=== PATIENT | male | born 1960 | race Caucasian/White ===

== ENCOUNTER 2020-11-15 10:47 | Observation (INO) | payer OTHER ==
[2020-11-15] MEDS ORDERED: SODIUM CHLORIDE 0.9% 1,000 ML IV STA (12:29)
[2020-11-15] MEDS ORDERED: LORazepam 2 MG/ML INJ IV STA (12:30)
[2020-11-15] MEDS ORDERED: MECLIZINE 12.5 MG TAB PO STA (12:30)
[2020-11-15] MEDS ORDERED: METOCLOPRAMIDE 5 MG/ML 2 ML VIAL IVP STA (12:31)
--- NOTE | 2020-11-15 12:35 | ED ---
General Adult HPI - General Chief complaint: Recheck/Abnormal Lab/Rx Stated complaint: elevated BP Time Seen by Provider: 11/15/20 12:07 Source: patient Mode of arrival: wheelchair Limitations: no limitations - History of Present Illness Initial comments: Dictation was produced using [employer] dictation software. please excuse any grammatical, word or spelling errors. This patient was cared for during a federal and state declared state of emergenc y secondary to Covid 19 Chief Complaint: 60-year-old male past medical history of hip osteoarthritis presents emergency department for hypertension. History of Present Illness: Giacomo is a 60-year-old male. He denies any significant comorbidities. He presents to the emergency department for dizziness and hypertension. Patient states that he's been feeling significantly dizzy. He states that it improves at rest. States that his symptoms are worse with certain movements. Especially with looking downwards. Patient denies any history of vertigo or Antivert. Denies any history of stroke. He's been checking his blood pressure for the last 4 days and it was found to have hypert ension. 4 days ago patient got his first vaccine for coronavirus. States that his blood pressure was checked after the vaccine and he was told by nurses that his blood pressure was high. Patient has been checking his blood pressures for the last 4 days with no elevations with systolics ranging between 170 and 200. Patient denies any chest pain. No headache. No shortness of breath. Patient s tates his symptoms are worse mostly with position changes. Patient states that his symptoms feel like the room is spinning. Patient has any history of hypertension. He checked his blood pressure fairly regularly over the last 6 months. He is to rest his blood pressure this high. The ROS documented in this emergency department record has been reviewed and confirmed by me. Those systems with pertinent positive or negative responses have been documented in the HPI. All other systems are other negative and/or noncontributory. PHYSICAL EXAM: General Impression: Alert and oriented x3, not in acute distress HEENT: Normocephalic atraumatic, extra-ocular movements intact, pupils equal and reactive to light bilaterally, mucous membranes moist. Cardiovascular: Heart regular rate and rhythm, no murmurs rubs or gallops Chest: Able to complete full sentences, no retractions, no tachypnea, lungs clear to auscultation bilaterally Abdomen: abdomen soft, non-tender, non-distended, no organomegaly Musculoskeletal: Pulses present and equal in all extremities, no peripheral edema, right hip pain with passive range of motion of the right lower extremity Motor: no focal deficits noted Neurological: CN II-XII grossly intact, no focal motor or sensory deficits noted Skin: Intact with no visualized rashes Psych: Normal affect and mood ED course: 60-year-old male presents with hypertension. He does have symptoms of dizziness. Signs upon arrival shows blood pressure 182/106, rest of vital signs within acceptable limits. Physical examination is benign. Patient has vertiginous symptoms triggered by movements. Clinical presentation concerning for benign paroxysmal positional vertigo. He is well-appearing at bedside. He does not have any HPI or physical exam findings concerning for hypertensive emergency. EKG interpretation: Ventricular rate 107, sinus tachycardia,. Interval 154, QRS 110, QTc 477. No MT prolongation, no QTC prolongation, no ST or T-wave changes noted. No EKG for comparison. Overall this EKG is unremarkable Patient is reevaluated at bedside. He does report some slight improvement. Patient ambulated previous significant arthropathy in his bilateral hips that prevent her from walking smoothly. He does seem mildly anxious. He still complains of some dizziness that is worse when he moves. Considering the patient's symptoms are really improving with vertigo medication there is concern of posterior circulation stroke. CT of the brain and CT angiogram of the head and neck was obtained. Shows no acute processes. Patient be admitted for neurology consultation. Taste discussed with Dr. Johnson was willing to accept patients care. Neurology on consult. - Related Data Home Medications Medication Instructions Recorded Confirmed No Known Home Medications 06/07/16 11/15/20 Allergies Allergy/AdvReac Type Severity Reaction Status Date / Time Sulfa (Sulfonamide Allergy Rash/Hives Verified 11/15/20 16:14 Antibiotics) Review of Systems ROS Statement: Those systems with pertinent positive or pertinent negative responses have been documented in the HPI. ROS Other: All systems not noted in ROS Statement are negative. Past Medical History Additional Past Medical History / Comment(s): Arthritis History of Any Multi-Drug Resistant Organisms: None Reported Past Surgical History: Cholecystectomy Past Psychological History: No Psychological Hx Reported Smoking Status: Never smoker Past Alcohol Use History: None Reported Past Drug Use History: None Reported General Exam Limitations: no limitations Course Vital Signs 11/15/20 11/15/2021 10:55 12:21 14:30 Temperature 98.8 F Pulse Rate 100 99 100 Respiratory 18 18 14 Rate Blood Pressure 192/106 188/108 160/108 O2 Sat by Pulse 98 99 98 Oximetry 11/15/20 15:00 Temperature Pulse Rate 100 Respiratory 15 Rate Blood Pressure 182/100 O2 Sat by Pulse 99 Oximetry Medical Decision Making - Lab Data Result diagrams: 11/15/20 14:24 11/15/20 14:24 Lab Results 11/15/20 11/15/20 Range/Units 14:24 14:24 WBC 11.3 H (3.8-10.6) k/uL RBC 5.99 H (4.30-5.90) m/uL Hgb 15.7 (13.0-17.5) gm/dL Hct 48.9 (39.0-53.0) % MCV 81.7 (80.0-100.0) fL MCH 26.3 (25.0-35.0) pg MCHC 32.2 (31.0-37.0) g/dL RDW 15.1 (11.5-15.5) % Plt Count 287 (150-450) k/uL MPV 7.4 Neutrophils % 78 % Lymphocytes % 15 % Monocytes % 5 % Eosinophils % 1 % Basophils % 0 % Neutrophils # 8.8 H (1.3-7.7) k/uL Lymphocytes # 1.7 (1.0-4.8) k/uL Monocytes # 0.6 (0-1.0) k/uL Eosinophils # 0.1 (0-0.7) k/uL Basophils # 0.1 (0-0.2) k/uL Sodium 140 (137-145) mmol/L Potassium 4.5 (3.5-5.1) mmol/L Chloride 106 (98-107) mmol/L Carbon Dioxide 22 (22-30) mmol/L Anion Gap 12 mmol/L BUN 11 (9-20) mg/dL Creatinine 0.81 (0.66-1.25) mg/dL Est GFR (CKD-EPI)AfAm >90 (>60 ml/min/1.73 sqM) Est GFR (CKD-EPI)NonAf >90 (>60 ml/min/1.73 sqM) Glucose 108 H (74-99) mg/dL Calcium 10.2 (8.4-10.2) mg/dL Disposition Clinical Impression: Dizziness Disposition: ADMITTED IP TO THIS HOSP Condition: Fair Referrals: None,Stated [Primary Care Provider] - 1-2 days Decision Time: 17:16
[2020-11-15 15:04] LABS: HCT 48.9 % (39.0-53.0); HGB 15.7 gm/dL (13.0-17.5); MCH 26.3 pg (25.0-35.0); MCHC 32.2 g/dL (31.0-37.0); MCV 81.7 fL (80.0-100.0); RBC 5.99 m/uL (4.30-5.90); WBC 11.3 k/uL (3.8-10.6)
[2020-11-15 15:05] LABS: Basophils # (A) 0.1 k/uL (0-0.2); Basophils % (A) 0 %; Eosinophils # (A) 0.1 k/uL (0-0.7); Eosinophils % (A) 1 %; Lymphocytes # (A) 1.7 k/uL (1.0-4.8); Lymphocytes % (A) 15 %; Mean Platelet Volume 7.4; Monocytes # (A) 0.6 k/uL (0-1.0); Monocytes % (A) 5 %; Neutrophils # (A) 8.8 k/uL (1.3-7.7); Neutrophils % (A) 78 %; Platelet Count 287 k/uL (150-450); RDW 15.1 % (11.5-15.5)
[2020-11-15 15:08] LABS: African American GFR (CKD) >90 (>60 ml/min/1.73 sqM); Anion Gap 12 mmol/L; Blood Urea Nitrogen 11 mg/dL (9-20); Calcium 10.2 mg/dL (8.4-10.2); Carbon Dioxide 22 mmol/L (22-30); Chloride 106 mmol/L (98-107); Glucose 108 mg/dL (74-99); Non-African American GFR(CKD) >90 (>60 ml/min/1.73 sqM); Potassium 4.5 mmol/L (3.5-5.1); Sodium 140 mmol/L (137-145)
--- NOTE | 2020-11-15 15:56 | CT ---
EXAM: CT brain wo con CLINICAL HISTORY: Dizziness. COMPARISON: None TECHNIQUE: Contiguous axial noncontrast images of the brain were obtained. Coronal and sagittal refor mats were generated and reviewed. Automated dose control was used for this exam. FINDINGS: There is no evidence for intracranial hemorrhage, mass effect or midline shift. There is mild parench ymal volume loss. The white matter is grossly preserved. Ventricular size and configuration is within normal limits for degree of parenchymal volume. The paranasal sinuses are clear. The mastoid air cells are clear. No evidence for calvarial fracture. IMPRESSION: No acute intracranial abnormality.
--- NOTE | 2020-11-15 16:18 | CT ---
EXAM: CTA HEAD AND NECK INDICATION: Hypertension and dizziness. Acute neurologic deficit. COMPARISON: None. TECHNIQUE: CTA of the head and neck were performed with multiplanar and MIP reformats generated and r kennediiewed. Stenosis evaluation is based on [place] Symptomatic Carotid Endarterectomy Trial (WILMER CET). 65 mL Isovue-370 intravenous contrast was administered. FINDINGS: There is normal three-vessel branching of the aorta. There is no evidence of high-grade stenosis, dis section or aneurysm seen in the bilateral common carotid, cervical internal carotid and vertebral art eries. There is no evidence of high-grade stenosis, dissection or aneurysm in the intracranial internal wagner tid arteries, anterior, middle and posterior cerebral arteries as well as in the imaged vertebral and basilar arteries. The communicating arteries are unremarkable. IMPRESSION: No significant abnormality of the CTA head/neck.
[2020-11-15] MEDS ORDERED: NALOXONE 0.4 MG/ML 1 ML VIAL IV PRN (16:46)
[2020-11-15] MEDS ORDERED: ASPIRIN 81 MG PO STA (16:49)
[2020-11-15] MEDS ORDERED: SODIUM CHLORIDE 0.9% 1,000 ML IV SCH (17:00)
[2020-11-15 17:46] LABS: INR 0.9 (<1.2); Partial Thromboplastin Time 22.6 sec (22.0-30.0); Prothrombin Time 10.2 sec (9.0-12.0)
[2020-11-15] MEDS ORDERED: hydrALAZINE HCL 25 MG TAB PO STA (19:44)
--- NOTE | 2020-11-15 22:39 | P.HPIM ---
History of Present Illness H&P Date: 11/15/20 The patient is a 60 yo M with a PMH of sterling severe hip OA who presented to the ED with complaints of dizziness. The patient notes that he hadn't seen a physician for nearly a decade. The patient notes that 2 months ago he suffered a mechanical fall after slipping on water in which he fell on his right shoulder and subsequently dislocating it. He was able to pop his shoulder back in the never sought medical attention. Patient notes that ever since then, he has had a certain level of anxiety with regards to his balance. He notes walking with a cane due to his severe arthritis but reports that even with that, at certain times he feels as though he is going to lose his footing. 4 days ago during his appointment to receive his vaccination, he felt as though his tonsils off, at which time they checked his blood pressure at the vaccination site which was noted to be > 200 systolic. The patient subsequent he purchased a blood pressure kit at home and checked his pressure throughout the day and noted it to be significantly elevated (>160s systolic throughout the day). He noted that he can tell when his blood pressure is elevated since he usually develops a pressure-like headache and that his dizziness worsens. He reported the dizziness as a loss of balance and denied spinning sensation or lightheadedness. Also denied loss of consciousness. Denied weakness, numbness, facial asym metry, impaired speech, or tingling. Denied chest pain, shortness breath, palpitations, diaphoresis, nausea, vomiting, or abdominal pain. In the emergency room, a head and neck CTA was unremarkable with EKG showing sinus tachycardia at 106 bpm along with an incomplete right bundle branch block. L aboratory evaluation was reviewed and was remarkable for leukocytosis at 11.3. Review of Systems Pertinent positives and negatives as discussed in HPI, a complete review of systems was performed and all other systems are negative. Past Medical History Additional Past Medical History / Comment(s): Arthritis History of Any Multi-Drug Resistant Organisms: None Reported Past Surgical History: Cholecystectomy Past Psychological History: No Psychological Hx Reported Smoking Status: Never smoker Past Alcohol Use History: None Reported Past Drug Use History: None Reported Medications and Allergies Home Medications Medication Instructions Recorded Confirmed Type No Known Home Medications 06/07/16 11/15/20 History Allergies Allergy/AdvReac Type Severity Reaction Status Date / Time Sulfa (Sulfonamide Allergy Rash/Hives Verified 11/15/20 16:14 Antibiotics) Physical Exam Vitals: Vital Signs Temp Pulse Pulse Resp BP BP Pulse Ox 11/15/20 19:31 98.4 F 102 H 18 189/97 98 11/15/20 18:19 93 18 175/95 97 11/15/20 15:00 100 15 182/100 99 11/15/20 14:30 100 14 160/108 98 11/15/20 12:21 99 18 188/108 99 11/15/20 10:55 98.8 F 100 18 192/106 98 Intake and Output 11/15/20 11/15/20 11/15/20 06:59 14:59 22:59 Other: Weight 81.647 kg 81.647 kg General: non toxic, no distress, appears at stated age, overweight Derm: no unusual rashes/lesions no unusual ecchymoses, warm, dry Head: atraumatic, normocephalic, symmetric Eyes: EOMI, no lid lag, anicteric sclera, pupils equal round reactive to light ENT: Nose and ears atraumatic, no thrush, no pharyngeal erythema Neck: No thyromegaly, no cervical lymphadenopathy, trachea midline, supple Mouth: no lip lesion, mucus membranes moist Cardiovascular: S1S2 reg, no murmur, positive posterior tibial pulse bilateral, no edema, capillary refill less than 2 seconds Lungs: CTA bilateral, no rhonchi, no rales , no accessory muscle use Abdominal: soft, nontender to palpation, no guarding, no appreciable organomegaly, normal bowel sounds Ext: no gross muscle atrophy, muscle strength 4 out of 5 in bilateral lower extremities and 5 out of 5 in bilateral upper extremities, no contractures, Neuro: CN II-XI grossly intact, light touch intact all 4 extremities, finger to nose within normal limits, Psych: Alert, oriented, appropriate affect Results CBC & Chem 7: 11/15/20 14:24 11/15/20 14:24 Labs: Abnormal Lab Results - Last 24 Hours (Table) 11/15/20 11/15/20 Range/Units 14:24 14:24 WBC 11.3 H (3.8-10.6) k/uL RBC 5.99 H (4.30-5.90) m/uL Neutrophils # 8.8 H (1.3-7.7) k/uL Glucose 108 H (74-99) mg/dL Assessment and Plan Plan: Dizziness, possibly due to elevated BP vs posterior circulation lesion -Low suspicion for CVA due to chronicity and negative CTA -Obtain orthostatics -Fall precautions -Control blood pressure -Neuro consult -Neurochecks Uncontrolled HTN -Start Norvasc and Lisinopril Leukocytosis -No signs of active infection at this time -Possibly due to on-going stressor DVT prophylaxis -Heparin subq The patient is admitted with an anticipated less than 2 midnight stay for evaluation of dizziness CODE STATUS: Full Code Discussed with: Patient, Anticipated discharge date: in am Anticipated discharge place: home A total of 35 minutes was spent on the care of this complex patient more than 50% of the time was spent in counseling and care coordination.
[2020-11-15] MEDS ORDERED: amLODIPine 10 MG TAB PO SCH (22:45)
[2020-11-15] MEDS ORDERED: lisinopriL 20 MG TAB PO SCH (22:45)
[2020-11-15] MEDS: HEPARIN SODIUM,PORCINE/PF 5,000 UNIT/0.5 ML SYRINGE SQ SCH (23:05)
[2020-11-16 08:17] VITALS: PULSE 94; RESP 18; TEMP 98.2
[2020-11-16] MEDS: HEPARIN SODIUM,PORCINE/PF 5,000 UNIT/0.5 ML SYRINGE SQ SCH (09:31)
[2020-11-16 09:53] LABS: HCT 42.8 % (39.0-53.0); HGB 14.3 gm/dL (13.0-17.5); MCHC 33.5 g/dL (31.0-37.0); MCV 80.7 fL (80.0-100.0); Mean Platelet Volume 7.3; Platelet Count 248 k/uL (150-450); WBC 7.5 k/uL (3.8-10.6)
[2020-11-16 11:35] VITALS: BP 163/89
--- NOTE | 2020-11-16 12:14 | P.DS ---
Providers Date of admission: 11/15/20 16:46 Expected date of discharge: 11/16/20 Attending physician: Alaina Johnson MD Consults: 11/15/20 16:47 Consult Physician Routine Consulting Provider: Gabriela Charlton Consult Reason/Comments: intractable vertigo Do you want consulting provider notified?: Yes Primary care physician: Stated None Hospital Course: Dizziness Uncontrolled HTN Leukocytosis 60 year old man who does not follow regularly with physicians presented for dizziness, and was found to have elevated BP. He underwent CVA workup with negative CTH and negative CTA. His symptoms improved with control of his blood pressure after starting norvasc and lisinopril. He felt back to normal with no symptoms on following hospital day and was sent home with instructions to establish care with PCP and with prescriptions for new BP meds. Assessment: Gen: awake, alert HEENT: normocephalic, atraumatic, good hearing acuity, moist mucous membranes Resp: good air exchange, breathing comfortably with no accessory muscle use CVS: good distal perfusion x 4, GI: soft, NTTP, ND : no SPT, no CVAT, richter catheter not present MSK: no pitting edema, no clubbing Neuro: non-focal, moving all extremities Psych: cooperative, euthymic mood Patient Condition at Discharge: Good Plan - Discharge Summary Discharge Rx Participant: No New Discharge Prescriptions: New amLODIPine [Norvasc] 10 mg PO Q24H #30 tab lisinopriL [Zestril] 20 mg PO DAILY #30 tab Discharge Medication List amLODIPine [Norvasc] 10 mg PO Q24H #30 tab 11/16/20 [Rx] lisinopriL [Zestril] 20 mg PO DAILY #30 tab 11/16/20 [Rx] Follow up Appointment(s)/Referral(s): None,Stated [Primary Care Provider] - 1-2 days Patient Instructions/Handouts: Heart Healthy Diet (DC), Hypertension (DC) Discharge Disposition: HOME SELF-CARE
[2020-11-16] MEDS ORDERED: ACETAMINOPHEN TAB 500 MG TAB PO PRN (13:04)
[2020-11-16 20:19] LABS: Hemoglobin A1C 5.4 % (4.0-6.0)
== END 2020-11-16 13:29 | disposition home or self-care (01) ==
LOC: EC 10:47 → 1SOBS 16:46
PROVIDERS: ADMIT Internal Medicine; ATTEND Internal Medicine
DX: R42 Dizziness and giddiness (principal); I10 Essential (primary) hypertension; M16.0 Bilateral primary osteoarthritis of hip; R26.89 Other abnormalities of gait and mobility; I45.10 Unspecified right bundle-branch block; R00.0 Tachycardia, unspecified; D72.829 Elevated white blood cell count, unspecified; Z20.822 Contact with and (suspected) exposure to COVID-19; Z88.2 Allergy status to sulfonamides; Z90.49 Acquired absence of other specified parts of digestive tract; Z87.828 Personal history of other (healed) physical injury and trauma; Z91.81 History of falling
CPT/HCPCS: 96372 ×2; 96361; 96374; 96375; 99285; 36415; 93005; 80048; 85025; 85027; 85610; 85730; 83036; 87635; 70496; 70450; 70498; G0378 ×2; J2060; J2765; Q9967; J1644 ×2

== ENCOUNTER 2021-12-18 18:24 | Observation (INO) | payer OTHER ==
[2021-12-18] MEDS ORDERED: SODIUM CHLORIDE 0.9% 500 ML 500 ML IV STA (21:42)
--- NOTE | 2021-12-18 21:52 | ED ---
Dizziness HPI - General Chief Complaint: Dizziness Stated Complaint: Dizziness,numbness in hands Time Seen by Provider: 12/18/21 21:21 Source: patient Mode of arrival: ambulatory Limitations: no limitations - History of Present Illness Initial Comments: 61-year-old male presents to the emergency room with reported dizziness. States that he has had difficulties with ambulation over the past several days. He normally ambulates with a cane however states that he has been unable to stand up straight due to balance issues. states that it is debilitating. He has not gone out of the house or tended any functions because he is afraid to fall. He is also reporting to palpitations. He admits to an episode one year prior for which he came into the emergency department and was diagnosed with hypertension. States he's been taking his medications as directed without any missed doses yet has symptoms. He also reports to palpitations. 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 ROS Other: All systems not noted in ROS Statement are negative. Past Medical History Past Medical History: Hypertension Additional Past Medical History / Comment(s): Arthritis History of Any Multi-Drug Resistant Organisms: None Reported Past Surgical History: Cholecystectomy Past Psychological History: No Psychological Hx Reported Smoking Status: Never smoker Past Alcohol Use History: None Reported Past Drug Use History: None Reported - Past Family History Father Family Medical History: COPD, Deep Vein Thrombosis (DVT), Myocardial Infarction ([place]) Additional Family Medical History / Comment(s): at age 77 Mother Family Medical History: Deep Vein Thrombosis (DVT), Myocardial Infarction ([place]) Additional Family Medical History / Comment(s): leaky heart valve,cabbag Sister(s) Family Medical History: Cancer Additional Family Medical History / Comment(s): bladder cancer General Exam Limitations: no limitations General appearance: alert, in no apparent distress Head exam: Present: atraumatic, normocephalic, normal inspection Eye exam: Present: normal appearance, PERRL, EOMI. Absent: scleral icterus, conjunctival injection, periorbital swelling ENT exam: Present: normal exam, mucous membranes moist Neck exam: Present: normal inspection. Absent: tenderness, meningismus, lymphadenopathy Respiratory exam: Present: normal lung sounds bilaterally. Absent: respiratory distress, wheezes, rales, rhonchi, stridor Cardiovascular Exam: Present: normal rhythm, tachycardia, normal heart sounds. Absent: systolic murmur, diastolic murmur, rubs, gallop, clicks GI/Abdominal exam: Present: soft, normal bowel sounds. Absent: distended, tenderness, guarding, rebound, rigid Extremities exam: Present: normal inspection, full ROM, normal capillary refill. Absent: tenderness, pedal edema, joint swelling, calf tenderness Back exam: Present: normal inspection Neurological exam: Present: alert, oriented X3, CN II-XII intact Psychiatric exam: Present: normal affect, normal mood Skin exam: Present: warm, dry, intact, normal color. Absent: rash Course Vital Signs 12/18/21 12/18/21 12/18/21 18:34 21:58 22:53 Temperature 98.0 F Pulse Rate 102 H 97 Pulse Rate [ 101 H Sitting] Pulse Rate [ 102 H Standing] Pulse Rate [ 98 Supine Simulation Developer] Respiratory 18 16 16 Rate Blood Pressure 140/83 153/85 Blood Pressure 152/92 [Sitting] Blood Pressure 164/104 [Standing] Blood Pressure 148/92 [Supine] O2 Sat by Pulse 98 98 Oximetry 12/19/21 00:06 Temperature Pulse Rate 89 Pulse Rate [ Sitting] Pulse Rate [ Standing] Pulse Rate [ Supine Simulation Developer] Respiratory 16 Rate Blood Pressure 149/87 Blood Pressure [Sitting] Blood Pressure [Standing] Blood Pressure [Supine] O2 Sat by Pulse 98 Oximetry EKG Findings - EKG Comments: EKG Findings:: EKG demonstrates a sinus rhythm with a rate of 93. General 153. QRS 118. QTC of 418. No acute ST segment elevations or depressions Medical Decision Making - Medical Decision Making Upon arrival patient is placed in room 4. A thorough history and physical exam was performed. IV access is established and laboratory studies were conducted. CT was performed of the brain which does not demonstrate any acute abnormalities. Chest x-ray demonstrates no tachycardia primary process. Recommended admission for neurology consultation which the patient did agree to. Spoke with Dr. Jesus who agreed to admit the patient. Patient is currently pending a bed on the floor - Lab Data Result diagrams: 12/19/21 06:27 12/19/21 06:27 Lab Results 12/18/21 12/18/21 12/18/21 Range/Units 21:52 21:52 21:52 WBC 11.1 H (3.8-10.6) k/uL RBC 5.74 (4.30-5.90) m/uL Hgb 15.4 (13.0-17.5) gm/dL Hct 48.5 (39.0-53.0) % MCV 84.5 (80.0-100.0) fL MCH 26.9 (25.0-35.0) pg MCHC 31.8 (31.0-37.0) g/dL RDW 15.3 (11.5-15.5) % Plt Count 300 (150-450) k/uL MPV 7.7 Neutrophils % 70 % Lymphocytes % 20 % Monocytes % 4 % Eosinophils % 4 % Basophils % 0 % Neutrophils # 7.8 H (1.3-7.7) k/uL Lymphocytes # 2.2 (1.0-4.8) k/uL Monocytes # 0.5 (0-1.0) k/uL Eosinophils # 0.4 (0-0.7) k/uL Basophils # 0.0 (0-0.2) k/uL Hypochromasia Slight PT 11.0 (9.0-12.0) sec INR 1.0 (<1.2) Sodium 140 (137-145) mmol/L Potassium 4.3 (3.5-5.1) mmol/L Chloride 106 (98-107) mmol/L Carbon Dioxide 21 L (22-30) mmol/L Anion Gap 13 mmol/L BUN 9 (9-20) mg/dL Creatinine 0.83 (0.66-1.25) mg/dL Est GFR (CKD-EPI)AfAm >90 (>60 ml/min/1.73 sqM) Est GFR (CKD-EPI)NonAf >90 (>60 ml/min/1.73 sqM) Glucose 98 (74-99) mg/dL Calcium 9.6 (8.4-10.2) mg/dL Total Bilirubin 0.9 (0.2-1.3) mg/dL AST 25 (17-59) U/L ALT 20 (4-49) U/L Alkaline Phosphatase 82 (38-126) U/L Troponin I (0.000-0.034) ng/mL Total Protein 8.5 H (6.3-8.2) g/dL Albumin 5.1 H (3.5-5.0) g/dL TSH 1.080 (0.465-4.680) mIU/L 12/18/21 Range/Units 21:52 WBC (3.8-10.6) k/uL RBC (4.30-5.90) m/uL Hgb (13.0-17.5) gm/dL Hct (39.0-53.0) % MCV (80.0-100.0) fL MCH (25.0-35.0) pg MCHC (31.0-37.0) g/dL RDW (11.5-15.5) % Plt Count (150-450) k/uL MPV Neutrophils % % Lymphocytes % % Monocytes % % Eosinophils % % Basophils % % Neutrophils # (1.3-7.7) k/uL Lymphocytes # (1.0-4.8) k/uL Monocytes # (0-1.0) k/uL Eosinophils # (0-0.7) k/uL Basophils # (0-0.2) k/uL Hypochromasia PT (9.0-12.0) sec INR (<1.2) Sodium (137-145) mmol/L Potassium (3.5-5.1) mmol/L Chloride (98-107) mmol/L Carbon Dioxide (22-30) mmol/L Anion Gap mmol/L BUN (9-20) mg/dL Creatinine (0.66-1.25) mg/dL Est GFR (CKD-EPI)AfAm (>60 ml/min/1.73 sqM) Est GFR (CKD-EPI)NonAf (>60 ml/min/1.73 sqM) Glucose (74-99) mg/dL Calcium (8.4-10.2) mg/dL Total Bilirubin (0.2-1.3) mg/dL AST (17-59) U/L ALT (4-49) U/L Alkaline Phosphatase (38-126) U/L Troponin I <0.012 (0.000-0.034) ng/mL Total Protein (6.3-8.2) g/dL Albumin (3.5-5.0) g/dL TSH (0.465-4.680) mIU/L Disposition Clinical Impression: Ataxia Disposition: ADMITTED IP TO THIS HOSP Condition: Stable Is patient prescribed a controlled substance at d/c from ED?: No Decision to Admit Reason: Admit from EC Decision Date: 12/18/21 Decision Time: 23:48
[2021-12-18 22:12] LABS: Basophils % (A) 0 %; Eosinophils # (A) 0.4 k/uL (0-0.7); Eosinophils % (A) 4 %; HCT 48.5 % (39.0-53.0); HGB 15.4 gm/dL (13.0-17.5); Hypochromasia Slight; Lymphocytes # (A) 2.2 k/uL (1.0-4.8); Lymphocytes % (A) 20 %; MCH 26.9 pg (25.0-35.0); MCHC 31.8 g/dL (31.0-37.0); MCV 84.5 fL (80.0-100.0); Mean Platelet Volume 7.7; Monocytes # (A) 0.5 k/uL (0-1.0); Monocytes % (A) 4 %; Neutrophils # (A) 7.8 k/uL (1.3-7.7); Neutrophils % (A) 70 %; Platelet Count 300 k/uL (150-450); RBC 5.74 m/uL (4.30-5.90); RDW 15.3 % (11.5-15.5); WBC 11.1 k/uL (3.8-10.6)
[2021-12-18 22:18] LABS: ALT 20 U/L (4-49); AST 25 U/L (17-59); African American GFR (CKD) >90 (>60 ml/min/1.73 sqM); Albumin 5.1 g/dL (3.5-5.0); Alkaline Phosphatase 82 U/L (38-126); Anion Gap 13 mmol/L; Blood Urea Nitrogen 9 mg/dL (9-20); Calcium 9.6 mg/dL (8.4-10.2); Carbon Dioxide 21 mmol/L (22-30); Chloride 106 mmol/L (98-107); Glucose 98 mg/dL (74-99); Non-African American GFR(CKD) >90 (>60 ml/min/1.73 sqM); Potassium 4.3 mmol/L (3.5-5.1); Sodium 140 mmol/L (137-145); Total Bilirubin 0.9 mg/dL (0.2-1.3); Total Protein 8.5 g/dL (6.3-8.2)
--- NOTE | 2021-12-18 22:27 | CT ---
EXAMINATION TYPE: CT brain wo con DATE OF EXAM: 12/18/2021 COMPARISON: 11/15/2020 HISTORY: dizziness CT DLP: 1106.4 mGycm Automated exposure control for dose reduction was used. Ventricles have normal size. There is no mass effect or midline shift. No sign of intracranial hemorr marilyn. Calvarium is intact. There is normal aeration of the mastoid sinuses. Skull base is intact. IMPRESSION: Negative unenhanced head CT scan. No change.
--- NOTE | 2021-12-18 22:32 | XR ---
EXAMINATION TYPE: XR chest 2V DATE OF EXAM: 12/18/2021 COMPARISON: NONE HISTORY: Dizziness TECHNIQUE: 2 view FINDINGS: Heart is normal. Lungs are clear of consolidation. There are no hilar masses. Costophrenic angles are clear. Bony thorax is intact. There is some spurring at the AC joints. There is probably a hiatal hernia. IMPRESSION: No active cardiopulmonary disease. Normal heart.
[2021-12-18] MEDS ORDERED: NALOXONE 0.4 MG/ML 1 ML VIAL IV PRN (23:48)
[2021-12-19] MEDS ORDERED: lisinopriL 20 MG TAB PO SCH ×2 (00:04→09:00)
[2021-12-19] MEDS ORDERED: amLODIPine 10 MG TAB PO SCH ×2 (00:15→09:00)
[2021-12-19 07:00] LABS: Basophils # (A) 0.1 k/uL (0-0.2); Basophils % (A) 1 %; Eosinophils # (A) 0.6 k/uL (0-0.7); Eosinophils % (A) 7 %; HCT 43.4 % (39.0-53.0); HGB 13.4 gm/dL (13.0-17.5); Lymphocytes # (A) 2.2 k/uL (1.0-4.8); Lymphocytes % (A) 27 %; MCH 25.8 pg (25.0-35.0); MCHC 30.8 g/dL (31.0-37.0); MCV 83.7 fL (80.0-100.0); Monocytes # (A) 0.6 k/uL (0-1.0); Monocytes % (A) 7 %; Neutrophils # (A) 4.6 k/uL (1.3-7.7); Neutrophils % (A) 57 %; Platelet Count 237 k/uL (150-450); RBC 5.18 m/uL (4.30-5.90); RDW 14.7 % (11.5-15.5); WBC 8.1 k/uL (3.8-10.6)
[2021-12-19 07:13] LABS: African American GFR (CKD) >90 (>60 ml/min/1.73 sqM); Anion Gap 8 mmol/L; Blood Urea Nitrogen 11 mg/dL (9-20); Calcium 8.8 mg/dL (8.4-10.2); Carbon Dioxide 25 mmol/L (22-30); Chloride 108 mmol/L (98-107); Glucose 95 mg/dL (74-99); Non-African American GFR(CKD) >90 (>60 ml/min/1.73 sqM); Sodium 141 mmol/L (137-145)
[2021-12-19] MEDS ORDERED: ATORVASTATIN 10 MG TAB PO SCH (09:00)
--- NOTE | 2021-12-19 12:01 | P.HPIM ---
History of Present Illness H&P Date: 12/19/21 Giacomo Dumas, is a 61-year-old male who presented to [facility] emergency room with a chief complaint of dizziness, and unsteady gait, patient stated that he had episodes of dizziness about a month ago at that time he had significantly elevated blood pressure he was not on any medication for blood pressure, lisinopril and amlodipine were added gradually to his medication regimen, blood pressure was better controlled and patient was not having any more dizziness, however in the last 2 days, patient started to have severe dizziness with unsteady gait and decided to come to the hospital. He was evaluated in the emergency room vital examination on presentation revealed a temperature of 98 pulse 102 respiration 18 blood pressure 140/83 pulse ox 98% on room air Laboratory data revealed a white blood count of 11.1 hemoglobin 15.4 platelet count 300 sodium 140 potassium 4.3 chloride 106 CO2 21 BUN 9 creatinine 0.83 TSH was 1.08 Testing in the emergency room revealed computed tomography scan of the brain without contrast done in the emergency room was negative chest x-ray did not reveal any acute abnormality EKG done in the emergency room revealed sinus rhythm with a rate of 93 with incomplete right bundle branch block Patient was admitted to medical floor for further evaluation and treatment Past medical history is significant for history of hypertension and history of osteoarthritis his surgical history is significant for cholecystectomy he never smoked he denies using alcohol or any kind of illicit drugs Past Medical History Past Medical History: Hyperlipidemia, Hypertension, Skin Disorder Additional Past Medical History / Comment(s): Arthritis, contact dermatitis History of Any Multi-Drug Resistant Organisms: None Reported Past Surgical History: Cholecystectomy, Orthopedic Surgery Additional Past Surgical History / Comment(s): right femur sx Past Anesthesia/Blood Transfusion Reactions: No Reported Reaction Past Psychological History: No Psychological Hx Reported Smoking Status: Never smoker Past Alcohol Use History: None Reported Past Drug Use History: None Reported - Past Family History Father Family Medical History: COPD, Deep Vein Thrombosis (DVT), Myocardial Infarction ([place]) Additional Family Medical History / Comment(s): at age 77 Mother Family Medical History: Deep Vein Thrombosis (DVT), Myocardial Infarction ([place]) Additional Family Medical History / Comment(s): leaky heart valve,cabbag Sister(s) Family Medical History: Cancer Additional Family Medical History / Comment(s): bladder cancer Medications and Allergies Home Medications Medication Instructions Recorded Confirmed Type Ergocalciferol (Vitamin D2) 1,250 mcg PO Q7D 12/18/21 12/18/21 History [Drisdol (50,000 Iu)] Rosuvastatin Calcium 5 mg PO DAILY 12/18/21 12/18/21 History amLODIPine [Norvasc] 10 mg PO DAILY 12/18/21 12/18/21 History lisinopriL [Zestril] 20 mg PO DAILY 12/18/21 12/18/21 History Allergies Allergy/AdvReac Type Severity Reaction Status Date / Time Sulfa (Sulfonamide Allergy Rash/Hives Verified 12/18/21 23:22 Antibiotics) Physical Exam Vitals: Vital Signs Temp Pulse Pulse Pulse Pulse Pulse Pulse 12/19/21 09:08 112 H 96 122 H 12/19/21 07:00 97.5 F L 79 12/19/21 00:48 97.5 F L 89 12/19/21 00:06 89 12/18/21 22:53 101 H 102 H 98 12/18/21 21:58 97 12/18/21 18:34 98.0 F 102 H Resp BP BP BP BP BP Pulse Ox 12/19/21 09:08 16 130/73 127/76 132/74 94 L 12/19/21 07:00 16 123/69 95 12/19/21 00:48 16 129/77 96 12/19/21 00:06 16 149/87 98 12/18/21 22:53 16 152/92 164/104 148/92 12/18/21 21:58 16 153/85 98 12/18/21 18:34 18 140/83 98 Intake and Output 12/18/21 12/19/21 12/19/21 22:59 06:59 14:59 Output Total 300 Balance -300 Output: Urine 300 Other: Weight 81.647 kg 81.647 kg In general patient is alert and oriented x 3 in no distress HEENT head normocephalic and atraumatic Neck is supple no JVD no goiter no lymphadenopathy no carotid bruit Chest examination is clear to auscultation no crackles no wheezing Cardiac exam reveals regular heart sounds S1 and S2 no gallops no murmurs Abdomen is soft nontender no organomegaly with normal bowel sounds Extremity exam reveals no edema no cyanosis or clubbing Neurological examination reveals no gross focal deficits Results CBC & Chem 7: 12/19/21 06:27 12/19/21 06:27 Labs: Abnormal Lab Results - Last 24 Hours (Table) 12/18/21 12/18/21 12/19/21 Range/Units 21:52 21:52 06:27 WBC 11.1 H (3.8-10.6) k/uL MCHC 30.8 L (31.0-37.0) g/dL Neutrophils # 7.8 H (1.3-7.7) k/uL Chloride (98-107) mmol/L Carbon Dioxide 21 L (22-30) mmol/L Total Protein 8.5 H (6.3-8.2) g/dL Albumin 5.1 H (3.5-5.0) g/dL 12/19/21 Range/Units 06:27 WBC (3.8-10.6) k/uL MCHC (31.0-37.0) g/dL Neutrophils # (1.3-7.7) k/uL Chloride 108 H (98-107) mmol/L Carbon Dioxide (22-30) mmol/L Total Protein (6.3-8.2) g/dL Albumin (3.5-5.0) g/dL Thrombosis Risk Factor Assmnt - Choose All That Apply Any of the Below Risk Factors Present?: Yes Each Factor Represents 1 point: Obesity (BMI >25) Each Risk Factor Represents 2 Points: Age 61-74 years Other congenital or acquired thrombophilia - If yes, enter type in comment: No Thrombosis Risk Factor Assessment Total Risk Factor Score: 3 Thrombosis Risk Factor Assessment Level: Moderate Risk Assessment and Plan Plan: Dizziness with unsteady gait, possible CVA, neurology consultation was requested, will check MRI of the brain Episodes of tachycardia, with abnormal EKG revealing incomplete right bundle branch block, cardiology consultation was requested Underlying history of hypertension Underlying history of hyperlipidemia Previous history of liver nodule, will check liver ultrasound Medication and labs were reviewed Home medications reorder MRI of the brain echocardiogram and carotid Doppler were ordered Will follow in a
--- NOTE | 2021-12-19 13:23 | US ---
EXAMINATION TYPE: US carotid duplex BILAT DATE OF EXAM: 12/19/2021 COMPARISON: NONE CLINICAL HISTORY: 61-year-old male Dizziness. Elevated blood pressure, dizziness, no h/o stroke TECHNIQUE: Carotid duplex ultrasound examination. Indirect Doppler criteria was utilized. FINDINGS: EXAM MEASUREMENTS: RIGHT: Peak Systolic Velocity (PSV) cm/sec ----- Right CCA: 118 ----- Right ICA: 125 ----- Right ECA: 92.3 ICA/CCA ratio: 1.0 RIGHT: End Diastole cm/sec ----- Right CCA: 23.3 ----- Right ICA: 24.8 ----- Right ECA: 15.1 LEFT: Peak Systolic Velocity (PSV) cm/sec ----- Left CCA: 127.0 ----- Left ICA: 89.1 ----- Left ECA: 104 ICA/CCA ratio: 0.7 LEFT: End Diastole cm/sec ----- Left CCA: 28.7 ----- Left ICA: 23.7 ----- Left ECA: 0.0 VERTEBRALS (direction of flow): Right Vertebral: Antegrade Left Vertebral: Antegrade Rhythm: Normal Asbestos Shingle Inspector notes: Mild homogeneous plaque with no stenosis seen IMPRESSION: No hemodynamically significant internal carotid artery stenosis on either side. Criteria for Assigning % of Stenosis / Diameter reduction (Estimation based on the indirect measurements of the internal carotid artery velocities (ICA PSV). 1. Normal (no stenosis)=ICA PSV < 125 cm/s: ratio < 2.0: ICA EDV<40 cm/s. 2. Less than 50% stenosis=ICA PSV < 125 cm/s: ratio < 2.0: ICA EDV<40 cm/s. 3. 50 to 69% stenosis=ICA PSV of 125 to 230 cm/s: ration 2.0 ? 4.0: ICA EDV 40-100 cm/s. 4. Greater than 70% stenosis to near occlusion= ICA PSV > 230 cm/s: ratio > 4.0: ICA EDV > 100 cm/s. 5. Near occlusion= ICA PSV velocities may be low or undetectable: variable ratio and ICA EDV. 6. Total occlusion=unable to detect flow.
--- NOTE | 2021-12-19 14:33 | P.CNNES ---
History of Present Illness Consult date: 12/19/21 Reason for Consult: Acute ataxia History of Present Illness: The patient is a 61-year-old male who is seen in neurologic consultation on December 19, 2021, via teleneurology. The patient is being seen because of symptoms of new onset ataxia. The patient reports that his symptoms have been present for a couple days. He says that he does not notice them when he is seated. He does feel a little bit of an odd sensation when he turns his head quickly. He primarily notices the symptoms when he is standing. He says he feels as if he will "pass out and fall to the left". The patient normally ambulates with a cane because of issues with his hips. He says that he holds the cane in his left hand and so he feels that he is falling to the left when he stands up. He has occasionally noted palpitations. He reports having similar symptoms approximately one year ago, when he was found to have elevated blood pressure. He was started on medication. At one point since that time, the patient was taking 2 medications twice daily. This was changed because he was feeling poorly on that dose. Patient reports recently having a virus. He says in addition to this, he had a sinus infection. Following sinus infection he had a cough that lasted for "45 days". He says that when he was coughing real hard, he had a sensation that he would pass out. The patient reports that his cough just resolved last week. The patient denies headache associated with his new symptoms. He denies new onset paresthesias and weakness. He denies difficulty with hand coordination. He denies changes in vision. The patient denies a spinning sensation. He denies tinnitus and hearing loss. He denies nausea and vomiting. He does feel that his symptoms are sometimes present if he turns his head quickly from side to side. He did also notice a feeling of ataxia/lightheadedness, when he was being wheeled to his room, in the wheelchair. He denies difficulty with hand coordination. He does report occasional headaches however these are reportedly associated with his teeth. The patient denies diplopia and vision loss. CT scan of the brain performed with the emergency department reveals no signs of acute hemorrhage or infarct. Review of Systems Recent history of severe cough and sinus infection. Otherwise review of systems is negative except for that noted in the history of present illness Past Medical History Past Medical History: Hyperlipidemia, Hypertension, Skin Disorder Additional Past Medical History / Comment(s): Arthritis, contact dermatitis History of Any Multi-Drug Resistant Organisms: None Reported Past Surgical History: Cholecystectomy, Orthopedic Surgery Additional Past Surgical History / Comment(s): right femur sx Past Anesthesia/Blood Transfusion Reactions: No Reported Reaction Past Psychological History: No Psychological Hx Reported Smoking Status: Never smoker Past Alcohol Use History: None Reported Past Drug Use History: None Reported - Past Family History Father Family Medical History: COPD, Deep Vein Thrombosis (DVT), Myocardial Infarction ([place]) Additional Family Medical History / Comment(s): at age 77 Mother Family Medical History: Deep Vein Thrombosis (DVT), Myocardial Infarction ([place]) Additional Family Medical History / Comment(s): leaky heart valve,cabbag Sister(s) Family Medical History: Cancer Additional Family Medical History / Comment(s): bladder cancer Medications and Allergies Home Medications Medication Instructions Recorded Confirmed Type Ergocalciferol (Vitamin D2) 1,250 mcg PO Q7D 12/18/21 12/18/21 History [Drisdol (50,000 Iu)] Rosuvastatin Calcium 5 mg PO DAILY 12/18/21 12/18/21 History amLODIPine [Norvasc] 10 mg PO DAILY 12/18/21 12/18/21 History lisinopriL [Zestril] 20 mg PO DAILY 12/18/21 12/18/21 History Allergies Allergy/AdvReac Type Severity Reaction Status Date / Time Sulfa (Sulfonamide Allergy Rash/Hives Verified 12/18/21 23:22 Antibiotics) Physical Examination - Vital Signs Vital Signs: Vital Signs Temp Pulse Pulse Pulse Pulse Pulse Resp 12/19/21 07:00 97.5 F L 79 16 12/19/21 00:48 97.5 F L 89 16 12/19/21 00:06 89 16 12/18/21 22:53 101 H 102 H 98 16 12/18/21 21:58 97 16 12/18/21 18:34 98.0 F 102 H 18 BP BP BP BP BP Pulse Ox 12/19/21 07:00 123/69 95 12/19/21 00:48 129/77 96 12/19/21 00:06 149/87 98 12/18/21 22:53 152/92 164/104 148/92 05/13/22 21:58 153/85 98 12/18/21 18:34 140/83 98 Intake and Output 12/18/21 12/19/21 12/19/21 22:59 06:59 14:59 Output Total 300 Balance -300 Output: Urine 300 Other: Weight 81.647 kg 81.647 kg Gen.: The patient is reclining in the bed. He is well-nourished, well-developed and in no acute distress. HEENT: Head is atraumatic, normocephalic. Fundus not visualized. There is no scleral icterus. Mucous membranes are moist. Neck: Supple without carotid bruits Heart: Regular rate and rhythm Lungs: Clear to auscultation Extremities: Without edema Neurological examination Mental status: The patient is awake, alert and oriented 3. His speech is clear. There is no dysarthria or aphagia. Judgment and insight are intact. Cranial nerves: Pupils are equal at 2 mm and reactive. Visual ritchie are full to confrontation. Extraocular movements are intact. There is no nystagmus. Facial sensations intact. There is no facial asymmetry. Hearing is grossly intact. Uvula and palate are midline. Shoulder shrug is symmetric. Tongue protrudes midline. Motor: Strength is 5/5 throughout with the exception of the right hip flexor at 5-/5. Coordination: Finger to nose, heel to cardenas and rapid alternating movements are intact. Sensation: Intact to light touch throughout Deep tendon reflexes: 2+/4+ in the bilateral upper extremities. 3+/4+ at the knees. 2+/4+ at the Achilles reflexes. Gait: Not assessed Results - Laboratory Findings CBC and BMP: 12/19/21 06:27 12/19/21 06:27 Abnormal Lab Findings: Abnormal Labs 12/18/21 12/18/21 12/19/21 21:52 21:52 06:27 WBC 11.1 H MCHC 30.8 L Neutrophils # 7.8 H Chloride Carbon Dioxide 21 L Total Protein 8.5 H Albumin 5.1 H 12/19/21 06:27 WBC MCHC Neutrophils # Chloride 108 H Carbon Dioxide Total Protein Albumin Assessment and Plan Assessment: 1. The patient is a 61-year-old man with symptoms of "dizziness". At times he describes a lightheaded sensation. Other times he ascribes feeling ataxia. The patient's neurological examination is normal. I find no signs consistent with a cerebellar infarct. Differential diagnosis: Benign positional vertigo versus cerebral infarct versus orthostatic hypotension 2. History of hypertension 3. History of recent, reported sinus infection 4. EKG showing bundle branch block Plan: 1. Recheck orthostatic vitals, and now the patient is taking his correct dosing of antihypertensive medication 2. MRI of brain to further evaluate for stroke 3. If MRI is negative consider treating patient for benign positional vertigo Thank you for allowing us to participate in the care of this patient Time with Patient: Greater than 30 (Spent 40 minutes with patient, examining, questioning and counseling)
[2021-12-19] MEDS: amLODIPine 10 MG TAB PO SCH (21:22)
[2021-12-19] MEDS: lisinopriL 20 MG TAB PO SCH (21:23)
[2021-12-19] MEDS: ATORVASTATIN 10 MG TAB PO SCH (21:23)
--- NOTE | 2021-12-20 08:50 | US ---
EXAMINATION TYPE: US liver DATE OF EXAM: 12/20/2021 COMPARISON: NONE CLINICAL HISTORY: 61-year-old male History of liver nodule. Eap Specialist notes: Patient had a CT at [facility] approximately 6-[address] saw a nodule. An ultrasound was done at that time and no nodule was identified so an MRI was recommended. TECHNIQUE: Multiple sonographic images of the right upper quadrant are obtained. FINDINGS: EXAM MEASUREMENTS: Liver Length: 13.4 cm Gallbladder: Surgically absent CBD: 0.9 cm Right Kidney: 10.8 x 4.8 x 4.6 cm Pancreas: Only small portions of the pancreatic body are seen. Remainder obscured by bowel gas shado wing. Liver: wnl as seen, somewhat limited visualization due to overlying bowel gas Gallbladder: Surgically absent CBD: Dilated. Right Kidney: No hydronephrosis or masses seen IMPRESSION: 1. Bile duct dilated at 9.2 mm. This may be normal given postcholecystectomy status. Correlate with a lkaline phosphatase and bilirubin levels. 2. No sonographic abnormality identified of the liver. If persistent concern, MRI can be performed.
--- NOTE | 2021-12-20 10:30 | P.CRDCN ---
History of Present Illness History of present illness: HISTORY OF PRESENTING ILLNESS This is a pleasant 61-year-old with past medical history significant for hypertension, family history of mom with [place] at the age of 67 and father with [place] at age of 77, previous palpitations. 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 He presents with episode yesterday of feeling lightheaded and "woozy" somewhat off balance at times. He admits this did occur one other time when his blood pressure was very high however that resolved once he was placed on blood pressu re medications. He states that his lightheadedness was worse when he was standing up and better when he was sitting down. The episode lasted for approximately 12 hours however this morning he is feeling better. He denies any chest pain or pressure or nausea during the episode. He denies any specific worsening with head movements however admits that with head movement it did not necessarily feel well. Denies any syncope or presyncope. He has had a mechanical fall in the past however no history of syncope. He had extensive workup approximately 15 years ago for palpitations and was told he has irregular heartbeat related to caffeine however this improved and he knows this was not atrial fibrillation. He states he always has off-and-on numbness and tingling in his left hand appears related to a radiculopathy, questionable carpal tunnel. EKG shows normal sinus rhythm, normal axis, no significant ST or T wave abnormalities. Blood work shows white blood cell count 11.1, hemoglobin 15.4, TSH normal. CT brain showed no acute process. Patient been evaluated by neurology. Orthostatics were negative however borderline blood pressures in the low 100-110s. REVIEW OF SYSTEMS At the time of my exam: CONSTITUTIONAL: Denies fever or chills. CARDIOVASCULAR: Denies chest pain, shortness of breath, orthopnea, PND or palpitations. RESPIRATORY: Denies cough. GASTROINTESTINAL: Denies abdominal pain, diarrhea, constipation, nausea or vomiting. MUSCULOSKELETAL: Denies myalgias. NEUROLOGIC: Denies numbness, tingling or weakness. ENDOCRINE: Denies fatigue, weight change, polydipsia or polyurina. GENITOURINARY: Denies burning, hematuria or urgency with micturation. HEMATOLOGIC: Denies history of anemia or bleeding. PHYSICAL EXAMINATION Vital signs reviewed. CONSTITUTIONAL: No apparent distress. HEENT: Head is normocephalic. Pupils are equal, round. Sclerae anicteric. Mucous membranes of the mouth are moist. No JVD. No carotid bruit. CHEST EXAMINATION: Lungs are clear to auscultation. No chest wall tenderness is noted on palpation or with deep breathing. HEART EXAMINATION: Regular rate and rhythm. S1, S2 heard. No murmurs, gallops or rub. ABDOMEN: Soft, nontender. Positive bowel sounds. EXTREMITIES: 2+ peripheral pulses, no lower extremity edema and no calf tenderne ss. NEUROLOGIC EXAMINATION: Patient is awake, alert and oriented x3. ASSESSMENT 1. Approximately 12 hour episode of dizziness, lightheadedness worse with standing. Appears to be some orthostatic component however rule out any neurologic component, TIA. 2. Hypertension 3. Family history CAD 4. Prior history of "irregular heartbeat "likely PACs/ no documentation of any atrial fibrillation 5. Mild leukocytosis 6. Palpitations PLAN Patient does have some orthostatic complaints. Echo performed however report not transferred over however revealed preserved EF and bubble study not able to be performed secondary to technically difficult study. If patient is still here we can perform bubble study from gastric views tomorrow. Otherwise would recommend outpatient event monitor for 2 weeks to further evaluate for any tachycardia or bradyarrhythmia and evaluate his palpitations. May consider decreasing antihypertensive medications given borderline blood pressures however currently appears to be tolerating. Past Medical History Past Medical History: Hyperlipidemia, Hypertension, Skin Disorder Additional Past Medical History / Comment(s): Arthritis, contact dermatitis History of Any Multi-Drug Resistant Organisms: None Reported Past Surgical History: Cholecystectomy, Orthopedic Surgery Additional Past Surgical History / Comment(s): right femur sx Past Anesthesia/Blood Transfusion Reactions: No Reported Reaction Past Psychological History: No Psychological Hx Reported Smoking Status: Never smoker Past Alcohol Use History: None Reported Past Drug Use History: None Reported - Past Family History Father Family Medical History: COPD, Deep Vein Thrombosis (DVT), Myocardial Infarction ([place]) Additional Family Medical History / Comment(s): at age 77 Mother Family Medical History: Deep Vein Thrombosis (DVT), Myocardial Infarction ([place]) Additional Family Medical History / Comment(s): leaky heart valve,cabbag Sister(s) Family Medical History: Cancer Additional Family Medical History / Comment(s): bladder cancer Medications and Allergies Home Medications Medication Instructions Recorded Confirmed Type Ergocalciferol (Vitamin D2) 1,250 mcg PO Q7D 12/18/21 12/18/21 History [Drisdol (50,000 Iu)] Rosuvastatin Calcium 5 mg PO DAILY 12/18/21 12/18/21 History amLODIPine [Norvasc] 10 mg PO DAILY 12/18/21 12/18/21 History lisinopriL [Zestril] 20 mg PO DAILY 12/18/21 12/18/21 History Allergies Allergy/AdvReac Type Severity Reaction Status Date / Time Sulfa (Sulfonamide Allergy Rash/Hives Verified 12/18/21 23:22 Antibiotics) Physical Exam Vitals: Vital Signs Temp Pulse Pulse Pulse Pulse Pulse Pulse 12/20/21 07:00 97.6 F 70 70 12/20/21 02:05 98.0 F 99 66 87 12/19/21 18:45 98.5 F 87 12/19/21 13:51 98.1 F 94 Resp BP BP BP BP Pulse Ox 12/20/21 07:00 18 111/73 110/72 112/75 95 12/20/21 02:05 18 107/73 101/66 100/60 97 12/19/21 18:45 20 119/82 97 12/19/21 13:51 16 121/69 94 L Intake and Output 12/19/21 12/20/21 12/20/21 22:59 06:59 14:59 Intake Total 180 Balance 180 Intake: Oral 180 Other: # Voids 1 2 Results 12/19/21 06:27 12/19/21 06:27 Current Medications Generic Name Dose Route Start Last Admin Trade Name Freq PRN Reason Stop Dose Admin Amlodipine Besylate 10 mg 12/19/21 21:00 12/19/21 21:22 Amlodipine 10 Mg Tab PO 10 mg HS SANDER Administration Atorvastatin Calcium 10 mg 12/19/21 21:00 12/19/21 21:23 Atorvastatin 10 Mg Tab PO 10 mg HS SANDER Administration Lisinopril 20 mg 12/19/21 21:00 12/19/21 21:23 Lisinopril 20 Mg Tab PO 20 mg HS SANDER Administration Naloxone HCl 0.2 mg 12/18/21 23:48 Naloxone 0.4 Mg/Ml 1 Ml Vial IV Q2M PRN Opioid Reversal Intake and Output 12/19/21 12/20/21 12/20/21 22:59 06:59 14:59 Intake Total 180 Balance 180 Intake: Oral 180 Other: # Voids 1 2 12/19/21 06:27 12/19/21 06:27
--- NOTE | 2021-12-20 10:32 | P.PN ---
Subjective Progress Note Date: 12/20/21 Giacomo Dumas, is a 61-year-old male who presented to [facility] emergency room with a chief complaint of dizziness, and unsteady gait, patient stated that he had episodes of dizziness about a month ago at that time he had significantly elevated blood pressure he was not on any medication for blood pressure, lisinopril and amlodipine were added gradually to his medication regimen, blood pressure was better controlled and patient was not having any more dizziness, however in the last 2 days, patient started to have severe dizziness with unsteady gait and decided to come to the hospital. He was evaluated in the emergency room vital examination on presentation revealed a temperature of 98 pulse 102 respiration 18 blood pressure 140/83 pulse ox 98% on room air Laboratory data revealed a white blood count of 11.1 hemoglobin 15.4 platelet count 300 sodium 140 potassium 4.3 chloride 106 CO2 21 BUN 9 creatinine 0.83 TSH was 1.08 Testing in the emergency room revealed computed tomography scan of the brain without contrast done in the emergency room was negative chest x-ray did not r eveal any acute abnormality EKG done in the emergency room revealed sinus rhythm with a rate of 93 with incomplete right bundle branch block Patient was admitted to medical floor for further evaluation and treatment Past medical history is significant for history of hypertension and history of osteoarthritis his surgical history is significant for cholecystectomy he never smoked he denies using alcohol or any kind of illicit drugs On 12/20/2021 patient is alert and oriented 3. Patient reports improvement with symptoms. MRI has been ordered per neuro services. Carotid Doppler negative. Cardiology services have been consulted. Patient denies chest pain or shortness breath. Patient denies nausea vomiting or diarrhea. Patient denies any urinary burning or frequency. 2-D echo has been completed and results pending Objective - Vital Signs Vital signs: Vital Signs Temp 97.6 F 12/20/21 07:00 Pulse 70 12/20/21 07:00 Resp 18 12/20/21 07:00 BP 110/72 12/20/21 07:00 Pulse Ox 95 12/20/21 07:00 Intake & Output 12/19/21 12/20/21 12/20/21 18:59 06:59 18:59 Intake Total 360 Balance 360 Intake: Oral 360 Other: # Voids 3 2 # Bowel Movements 1 - Exam In general patient is alert and oriented x 3 in no distress HEENT head normocephalic and atraumatic Neck is supple no JVD no goiter no lymphadenopathy no carotid bruit Chest examination is clear to auscultation no crackles no wheezing Cardiac exam reveals regular heart sounds S1 and S2 no gallops no murmurs Abdomen is soft nontender no organomegaly with normal bowel sounds Extremity exam reveals no edema no cyanosis or clubbing Neurological examination reveals no gross focal deficits - Labs CBC & Chem 7: 12/19/21 06:27 12/19/21 06:27 Assessment and Plan Plan: Dizziness with unsteady gait, possible CVA, neurology consultation was requested, will check MRI of the brain Episodes of tachycardia, with abnormal EKG revealing incomplete right bundle branch block, cardiology consultation was requested Underlying history of hypertension Underlying history of hyperlipidemia Previous history of liver nodule, will check liver ultrasound Medication and labs were reviewed Home medications reorder MRI of the brain has been ordered 2-D echo completed results pending Carotid Doppler negative
--- NOTE | 2021-12-20 10:39 | P.PN ---
Subjective Progress Note Date: 12/20/21 The patient is seen in neurologic follow-up on December 20, 2021 he had telemedicine. He reports that his symptoms have improved. He is no longer feeling off balance or lightheaded. He says that he has been able to get up and walk to the bathroom without difficulty. He denies symptoms associated with head movement. He reports sleeping well. Objective - Vital Signs Vital signs: Vital Signs Temp 97.6 F 12/20/21 07:00 Pulse 70 12/20/21 07:00 Resp 18 12/20/21 07:00 BP 110/72 12/20/21 07:00 Pulse Ox 95 12/20/21 07:00 Intake & Output 12/19/21 12/20/21 12/20/21 18:59 06:59 18:59 Intake Total 360 Balance 360 Intake: Oral 360 Other: # Voids 3 2 # Bowel Movements 1 - Exam Gen.: The patient is reclining in the bed. He is well-nourished, well-developed and in no acute distress. HEENT: Head is atraumatic, normocephalic. Fundus not visualized. There is no scleral icterus. Mucous membranes are moist. Neurological examination Mental status: The patient is awake, alert and oriented 3. His speech is clear. There is no dysarthria or aphasia. Judgment and insight are intact. Cranial nerves: Pupils are equal at 2 mm and reactive. Visual ritchie are full to confrontation. Extraocular movements are intact. There is no nystagmus. Fa cial sensations intact. There is no facial asymmetry. Hearing is grossly intact. Uvula and palate are midline. Shoulder shrug is symmetric. Tongue protrudes midline. Coordination: Finger to nose, heel to cardenas and rapid alternating movements are intact. - Labs CBC & Chem 7: 12/19/21 06:27 12/19/21 06:27 Assessment and Plan Assessment: 1. The patient is a 61-year-old man with symptoms of "dizziness". At times he describes a lightheaded sensation. Other times he ascribes feeling ataxia. The patient's neurological examination is normal. I find no signs consistent with a cerebellar infarct. Differential diagnosis: Benign positional vertigo versus cerebral infarct versus orthostatic hypotension 2. History of hypertension 3. History of recent, reported sinus infection 4. EKG showing right bundle branch block Plan: 1. MRI of brain to further evaluate for stroke 2. If MRI is negative consider treating patient for benign positional vertigo Dr. Harvey will assume neurologic coverage of this patient has of December 21, 2021 Time with Patient: Less than 30 (Spent 15 minutes with the patient via teleneurology)
[2021-12-20] MEDS: lisinopriL 20 MG TAB PO SCH (20:44)
[2021-12-20] MEDS: amLODIPine 10 MG TAB PO SCH (20:44)
[2021-12-20] MEDS: ATORVASTATIN 10 MG TAB PO SCH (20:44)
--- NOTE | 2021-12-21 07:46 | MR ---
EXAMINATION TYPE: MR brain and iac wo/w con DATE OF EXAM: 12/21/2021 COMPARISON: CT brain 3 days ago HISTORY: Dizziness TECHNIQUE: Multiplanar, multisequence images of the brain and brainstem along with internal auditory canals are all performed without and with IV contrast, utilizing 8 mL intravenous Gadavist . FINDINGS: Diffusion weighted images demonstrate no evidence of a recent infarct or other diffusion ab normality. The ventricular system and cisternal spaces are normal in size and appearance. The brain volume is age appropriate. Occasional scattered tiny focus of T2 hyperintensity seen throughout the w cosmo matter bilaterally. Less than 5 distinct small lesions are seen. The lesions are nonspecific in appearance and distribution. Midline structures demonstrate normal morphology. The craniocervical junction appears within normal limits. Post contrast images demonstrate no abnormal enhancement. The dural venous sinuses appear pa tent. The visualized sinuses are clear and the globes are intact. The vestibulocochlear complexes are symmetric and felt to be within normal limits. There is no suspic ious enhancing cerebellopontine angle mass identified bilaterally No suspicious fluid signal in the m astoid air cells bilaterally. IMPRESSION: Source of dizziness not identified. Unremarkable study.
[2021-12-21 09:39] LABS: Basophils # (A) 0.04 X 10*3/uL (0.00-0.10); Basophils % (A) 0.5 %; Eosinophils # (A) 0.53 X 10*3/uL (0.04-0.35); Eosinophils % (A) 6.8 %; HCT 43.5 % (39.6-50.0); HGB 13.4 g/dL (13.0-17.0); Immature Grans, Automated 0.4 %; Lymphocytes # (A) 2.42 X 10*3/uL (0.90-5.00); Lymphocytes % (A) 31.2 %; MCH 25.8 pg (27.0-32.0); MCHC 30.8 g/dL (32.0-37.0); MCV 83.7 fL (80.0-97.0); Monocytes # (A) 0.77 X 10*3/uL (0.20-1.00); Monocytes % (A) 9.9 %; NRBC Per 100 WBC 0 /100 WBCS (0.0-0.0); Neutrophils # (A) 3.96 X 10*3/uL (1.80-7.70); Neutrophils % (A) 51.2 %; Platelet Count 256 X 10*3/uL (140-440); RDW 14.9 % (11.5-14.5); WBC 7.75 X 10*3/uL (4.50-10.00)
[2021-12-21 09:55] LABS: African American GFR (CKD) 82.9 (60.0-200.0); Albumin 4.2 g/dL (3.8-4.9); Albumin/Globulin Ratio 1.68 (1.60-3.17); Anion Gap 9.5 mmol/L (10.00-18.00); BUN/Creat Ratio 14.09 Ratio (12.00-20.00); Blood Urea Nitrogen 15.5 mg/dL (9.0-27.0); Calcium 9.3 mg/dL (8.7-10.3); Carbon Dioxide 25.5 mmol/L (20.0-27.5); Globulin 2.5 g/dL (1.6-3.3); Non-African American GFR(CKD) 71.6 (60.0-200.0); Potassium 4.3 mmol/L (3.5-5.5); Total Bilirubin 0.4 mg/dL (0.30-1.20); Total Protein 6.7 g/dL (6.2-8.2)
--- NOTE | 2021-12-21 10:35 | CA ---
Transthoracic Echo Report Name: Giacomo Dumas Age: 61 Gender: M : 1960 Exam Date: 12/21/2021 08:24 Exam Location: [place] [facility] Ht (in): 67 Wt (lb): 180 Ordering Physician: Tony Marcano DO ([email or web address]) Attending/Referring Phys: Manager Export Elyssa Garsia RDCS Procedure CPT: Indications: Bubble study only, may do in subcostal views Cardiac Hx: Technical Quality: Fair Contrast 1: Agitated Saline Total Dose (mL): 2 Contrast 2: Total Dose (mL): MEASUREMENTS (Male / Female) Normal Values FINDINGS Left Ventricle Right Ventricle Right Atrium Left Atrium 2 injections of saline, rest and cough to rule out shunt. No shunt seen. Mitral Valve Aortic Valve Tricuspid Valve Pulmonic Valve Pericardium Aorta CONCLUSIONS The x-ray difficult study No shunt was seen across the interatrial septum Previewed by: Dr. Fady Bills MD (Electronically Signed) Final Date: 21 Dec 2021 09:56
--- NOTE | 2021-12-21 11:15 | P.PN ---
Subjective This is a pleasant 61-year-old with past medical history significant for hypertension, family history of mom with GA at the age of 67 and father with GA at age of 77, previous palpitations. 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 We are consulted for dizziness, episodes of tachycardia He presents with episode yesterday of feeling lightheaded and "woozy" somewhat off balance at times. He admits this did occur one other time when his blood pressure was very high however that resolved once he was placed on blood pressure medications. He states that his lightheadedness was worse when he was standing up and better when he was sitting down. The episode lasted for approximately 12 hours. He denies any chest pain or pressure or nausea during the episode. He denies any specific worsening with head movements however admits that with head movement it did not necessarily feel well. Denies any syncope or presyncope. He had extensive workup approximately 15 years ago for palpitations and was told he has irregular heartbeat related to caffeine however this improved and he knows this was not atrial fibrillation. EKG revealed normal sinus rhythm, normal axis, no significant ST or T wave abnormalities. CT brain showed no acute process. Patient been evaluated by neurology. Orthostatics were negative. Echocardiogram reviewed by Dr. Marcano for the weekend which revealed preserved EF. 12/21/2021 Patient seen and examined at bedside, no acute distress. His dizziness has improved. MRI of the brain revealed no acute intracranial process. Limited echocardiogram revealed no shunt across intra-atrial septum. Telemetry reviewed patient maintained sinus mechanism, no evidence of tachycardia, no evidence of arrhythmia noted. Labs, sodium 141, potassium 4.3, BUN 15, serum creatinine 1.1, TSH within normal limits. PHYSICAL EXAMINATION Vital signs reviewed. CONSTITUTIONAL: No apparent distress. HEENT: Neck Supple. No JVD. No carotid bruit. CHEST EXAMINATION: Lungs are clear to auscultation. No chest wall tenderness is noted on palpation or with deep breathing. HEART EXAMINATION: Regular rate and rhythm. S1, S2 heard. No murmurs, gallops or rub. ABDOMEN: Soft, nontender. Positive bowel sounds. EXTREMITIES: 2+ peripheral pulses, no lower extremity edema and no calf tenderness. NEUROLOGIC EXAMINATION: Patient is awake, alert and oriented x3. ASSESSMENT Approximately 12 hour episode of dizziness, lightheadedness worse with standing. Orthostatics negative History of Hypertension Family history CAD Prior history of "irregular heartbeat "likely PACs/ no documentation of any atrial fibrillation Mild leukocytosis Palpitations PLAN Ok to hold amlodipine if continue hypotension BP 90s/40s Neurology following Limited echocardiogram revealed no shunt across intra-atrial septum. Continue statin No further inpatient workup is needed at this time from a cardiology perspective patient is stable. Patient may follow up outpatient with Dr. Marcano. Nurse practitioner note has been reviewed by physician. Signing provider agrees with the documented findings, assessment, and plan of care. Objective - Vital Signs Vital signs: Vital Signs Temp 97.5 F L 12/21/21 07:00 Pulse 78 12/21/21 07:00 Resp 18 12/21/21 07:00 BP 107/67 12/21/21 07:00 Pulse Ox 93 L 12/21/21 07:00 Intake & Output 12/20/21 12/21/21 12/21/21 18:59 06:59 18:59 Intake Total 240 118 Balance 240 118 Intake: Oral 240 118 Other: # Voids 3 1 - Labs CBC & Chem 7: 12/21/21 06:07 12/21/21 06:07 Labs: Abnormal Lab Results - Last 24 Hours (Table) 12/21/21 12/21/21 Range/Units 06:07 06:07 MCH 25.8 L (27.0-32.0) pg MCHC 30.8 L (32.0-37.0) g/dL RDW 14.9 H (11.5-14.5) % Eosinophils # 0.53 H (0.04-0.35) X 10*3/uL Anion Gap 9.50 L (10.00-18.00) mmol/L AST 13 L (14-35) U/L
--- NOTE | 2021-12-21 14:02 | P.DS ---
Providers Date of admission: 12/18/21 23:48 Expected date of discharge: 12/21/21 Attending physician: Lelia Jesus Consults: 12/18/21 23:48 Consult Physician Urgent Consulting Provider: Danny Castro Consult Reason/Comments: acute ataxia Do you want consulting provider notified?: Yes 12/19/21 09:55 Consult Physician Routine Consulting Provider: Mukesh Galindo Consult Reason/Comments: Dizziness, abnormal EKG, episodes of tachycardia Do you want consulting provider notified?: Yes Primary care physician: Lelia Ann Marie [place] [facility] Course: Diagnosis on discharge: Dizziness with unsteady gait, possible CVA, neurology consultation was requested, will check MRI of the brain Episodes of tachycardia, with abnormal EKG revealing incomplete right bundle branch block, cardiology consultation was requested Underlying history of hypertension Underlying history of hyperlipidemia Previous history of liver nodule, will check liver ultrasound, liver ultrasound done no evidence of liver Hospital course: Giacomo Dumas, is a 61-year-old male who presented to [facility] emergency room with a chief complaint of dizziness, and unsteady gait, patient stated that he had episodes of dizziness about a month ago at that time he had significantly elevated blood pressure he was not on any medication for blood pressure, lisinopril and amlodipine were added gradually to his medication regimen, blood pressure was better controlled and patient was not having any more dizziness, however in the last 2 days, patient started to have severe dizziness with unsteady gait and decided to come to the hospital. He was evaluated in the emergency room vital examination on presentation revealed a temperature of 98 pulse 102 respiration 18 blood pressure 140/83 pulse ox 98% on room air Laboratory data revealed a white blood count of 11.1 hemoglobin 15.4 platelet count 300 sodium 140 potassium 4.3 chloride 106 CO2 21 BUN 9 creatinine 0.83 TSH was 1.08 Testing in the emergency room revealed computed tomography scan of the brain without contrast done in the emergency room was negative chest x-ray did not reveal any acute abnormality EKG done in the emergency room revealed sinus rhythm with a rate of 93 with incomplete right bundle branch block Patient was admitted to medical floor for further evaluation and treatment Past medical history is significant for history of hypertension and history of osteoarthritis his surgical history is significant for cholecystectomy he never smoked he denies using alcohol or any kind of illicit drugs On 12/20/2021 patient is alert and oriented 3. Patient reports improvement with symptoms. MRI has been ordered per neuro services. Carotid Doppler negative. Cardiology services have been consulted. Patient denies chest pain or shortness breath. Patient denies nausea vomiting or diarrhea. Patient denies any urinary burning or frequency. 2-D echo has been completed and results pending On 12/21/2021 patient was seen and examined on the telemetry floor he is alert and oriented 3 in no apparent distress he is having episodes of hypotension with systolic blood pressure dropping below 100 he is also still having episodes of dizziness at this time amlodipine was discontinued all cardiology testing and neurology testing are within normal limits patient will be discharged to home today he was given a prescription for meclizine and was told to discontinue taking amlodipine he will be followed in our office in 2-3 days Patient Condition at Discharge: Stable Plan - Discharge Summary Discharge Rx Participant: No New Discharge Prescriptions: New Meclizine [Antivert] 12.5 mg PO Q6H 10 Days #30 tablet Continue Rosuvastatin Calcium 5 mg PO DAILY Ergocalciferol (Vitamin D2) [Drisdol (50,000 Iu)] 1,250 mcg PO Q7D lisinopriL [Zestril] 20 mg PO DAILY Discontinued amLODIPine [Norvasc] 10 mg PO DAILY Discharge Medication List Ergocalciferol (Vitamin D2) [Drisdol (50,000 Iu)] 1,250 mcg PO Q7D 12/18/21 [History] Rosuvastatin Calcium 5 mg PO DAILY 12/18/21 [History] lisinopriL [Zestril] 20 mg PO DAILY 12/18/21 [History] Meclizine [Antivert] 12.5 mg PO Q6H 10 Days #30 tablet 12/21/21 [Rx] Follow up Appointment(s)/Referral(s): Tony Marcano DO [STAFF PHYSICIAN] - 2 Weeks Lelia Jesus MD [Primary Care Provider] - 1-2 days Patient Instructions/Handouts: Dizziness (GEN)
[2021-12-21 14:17] VITALS: BP 110/79; PULSE 81; RESP 16; TEMP 98.1
--- NOTE | 2021-12-22 12:49 | CA ---
Transthoracic Echo Report Name: Giacomo Dumas Age: 61 Gender: M : 1960 Exam Date: 12/19/2021 10:59 Exam Location: [place] [facility] Ht (in): 67 Wt (lb): 180 Ordering Physician: Lelia Jesus MD Attending/Referring Phys: Configurator Narcisa Yung RDCS Procedure CPT: Indications: dizziness Cardiac Hx: Technical Quality: Good Contrast 1: N/A Total Dose (mL): Contrast 2: Total Dose (mL): MEASUREMENTS (Male / Female) Normal Values 2D ECHO LV Diastolic Diameter PLAX 5.0 cm 4.2 - 5.9 / 3.9 - 5.3 cm LV Systolic Diameter PLAX 3.3 cm IVS Diastolic Thickness 1.2 cm 0.6 - 1.0 / 0.6 - 0.9 cm LVPW Diastolic Thickness 1.4 cm 0.6 - 1.0 / 0.6 - 0.9 cm LV Relative Wall Thickness 0.5 RV Internal Dim ED PLAX 3.6 cm LA Systolic Diameter LX 4.1 cm 3.0 - 4.0 / 2.7 - 3.8 cm LA Volume 54.3 cm??? 18 - 58 / 22 - 52 cm??? M-MODE Aortic Root Diameter MM 3.5 cm LA Systolic Diameter MM 4.2 cm LA Ao Ratio MM 1.2 MV E Point Septal Separation 1.1 cm AV Cusp Separation MM 2.0 cm DOPPLER MV Area PHT 3.0 cm??? Mitral E Point Velocity 39.2 cm/s Mitral A Point Velocity 66.2 cm/s Mitral E to A Ratio 0.6 MV Deceleration Time 252.7 ms MV E' Velocity 6.0 cm/s Mitral E to MV E' Ratio 6.5 TR Peak Velocity 140.5 cm/s TR Peak Gradient 7.9 mmHg Right Ventricular Systolic Press 12.9 mmHg FINDINGS Left Ventricle Left ventricular ejection fraction is estimated at 50-55%. Mildly increased left ventricular wall thickness. Right Ventricle Normal right ventricular size and function. Right ventricular systolic pressure within normal limits. . Right Atrium Normal right atrial size. Left Atrium Left atrial size at the upper limits of normal. Mitral Valve Mild mitral regurgitation. Aortic Valve Aortic valve sclerosis. Tricuspid Valve Mild tricuspid regurgitation. Pulmonic Valve Structurally normal pulmonic valve. Pericardium Echo free space anterior to the right ventricle likely represents a fat pad. Aorta Normal size aortic root and proximal ascending aorta. CONCLUSIONS Low-normal left ventricular ejection fraction 50-55%. Mild LVH. Mild mitral regurgitation Mild tricuspid regurgitation. Previewed by: Dr. Tony Marcano DO (Electronically Signed) Final Date: 20 Dec 2021 08:21
== END 2021-12-21 16:20 ==
LOC: EC 18:24 → 6NMEDSUR 23:48
PROVIDERS: ADMIT Internal Medicine; ATTEND Internal Medicine
DX: R27.8 Other lack of coordination (principal); R00.0 Tachycardia, unspecified; I45.10 Unspecified right bundle-branch block; I10 Essential (primary) hypertension; E78.5 Hyperlipidemia, unspecified; R26.81 Unsteadiness on feet; K76.89 Other specified diseases of liver; D72.829 Elevated white blood cell count, unspecified; R51.9 Headache, unspecified; R00.2 Palpitations; I08.1 Rheumatic disorders of both mitral and tricuspid valves; E66.9 Obesity, unspecified; Z68.28 Body mass index [BMI] 28.0-28.9, adult; L25.9 Unspecified contact dermatitis, unspecified cause; M19.90 Unspecified osteoarthritis, unspecified site; M54.10 Radiculopathy, site unspecified; Z79.899 Other long term (current) drug therapy; Z88.2 Allergy status to sulfonamides; Z90.49 Acquired absence of other specified parts of digestive tract; Z80.52 Family history of malignant neoplasm of bladder; Z82.49 Family history of ischemic heart disease and other diseases of the circulatory system; Z82.5 Family history of asthma and other chronic lower respiratory diseases
CPT/HCPCS: 99285; 96360; 96361; 36415; 93005; 93308; 93306; 80053 ×2; 80048; 84443; 84484; 85025 ×3; 85610; 71046; 93880; 76705; 70450; 70553; G0378 ×3; A9585

== ENCOUNTER → 2022-01-25 | Outpatient (CLI) | payer OTHER ==
--- NOTE | 2022-01-26 03:25 | MR ---
EXAMINATION TYPE: MR MRCP DATE OF EXAM: 01/25/2022 COMPARISON: None HISTORY: Abnormal ultrasound, bile duct dilation Multiplanar multiecho imaging of the abdomen obtained with no contrast. There are MRCP images. Liver is intact. The bile ducts are not dilated. Spleen is intact. There is no evidence of pancreatic mass. The pancreatic duct is not dilated. Stomach appears normal. There is no sign of pleural effusi on. There is no sign of adrenal mass. Kidneys have normal size. There appears to be multiple renal parape lvic cysts. Ureters are not dilated. There is no retroperitoneal adenopathy. MRCP images show no evid ence of filling defect in the common bile duct. Common bile duct measures 6.5 mm. No evidence of a st ricture or filling defect. There is some smooth tapering of the distal common bile duct and thought t o be due to the normal sphincter constriction. IMPRESSION: Cholecystectomy. Common bile duct and intrahepatic bile ducts are top normal in size but thought to b e normal for postcholecystectomy patient. Normal pancreatic duct. No pancreatic mass. No sign of a co mmon duct stone. Renal parapelvic cysts.
== END | disposition home or self-care (01) ==
LOC: RADMRIMAIN 07:00
PROVIDERS: ATTEND Internal Medicine
DX: M83.1 Senile osteomalacia (principal); Z90.49 Acquired absence of other specified parts of digestive tract
CPT/HCPCS: 74181

== ENCOUNTER → 2022-05-27 | Outpatient (CLI) | payer OTHER ==
--- NOTE | 2022-05-28 07:13 | US ---
EXAMINATION TYPE: US scrotum with doppler. Grayscale and color Doppler Duplex imaging performed of t isidro scrotum. DATE OF EXAM: 05/27/2022 COMPARISON: NONE CLINICAL HISTORY: N50.89 DISORDERS OF THE MALE GENITAL ORGANS. Palpable mass recently discovered in s crotum EXAM MEASUREMENTS: TESTICLES: Right Testicle: 4.1 x 2.4 x 2.8cm Left Testicle: 4.1 x 2.4 x 2.8cm EPIDIDYMIS HEAD: Right Epididymis: 0.9cm Left Epididymis: 0.7cm Doppler performed to assess for testicular vascularity; good bilateral color flow and waveforms are s een. There is no evidence of testicular torsion. Presence of hydroceles: No Presence of varicoceles: No In the area of palpable concern, right inferior scrotum, a hypoechoic mass vs prominent epididymis ta il is visualized measuring 1.5 x 1.1 x 1.0 cm. This area has multiple echogenic foci within it. IMPRESSION: Palpable abnormality correlates with a palpable hypoechoic mass. Differential includes Adenomatoid tu mor of the scrotum as it is most common. Urologic consultation recommended. Appropriate spectral arterial and venous waveforms to the testes bilaterally.
== END | disposition home or self-care (01) ==
LOC: RADUSWWP 16:06
PROVIDERS: ATTEND Internal Medicine
DX: D29.30 Benign neoplasm of unspecified epididymis (principal); N50.89 Other specified disorders of the male genital organs
CPT/HCPCS: 76870; 93975

== ENCOUNTER 2022-11-15 22:03 | Observation (INO) | payer OTHER ==
--- NOTE | 2022-11-15 22:05 | ED ---
General Adult HPI - General Source: RN notes reviewed <Chary Mendieta - Last Filed: 11/15/22 22:05> - General Source: RN notes reviewed, old records reviewed Limitations: no limitations - History of Present Illness -: days(s) Radiation: non-radiation Severity scale (1-10): 3 Consistency: constant Improves with: none Worsens with: none Associated Symptoms: shortness of breath, syncope (Near passing out), weakness Treatments Prior to Arrival: none <Max Pinto - Last Filed: 11/16/22 01:07> - General Stated complaint: difficulty walking Time Seen by Provider: 11/15/22 22:04 - History of Present Illness Initial comments: 62-year-old female significant past medical history presents the emergency department with a chief complaint of presyncope. Patient states "every time I walk I feel like I'm going to pass out." (Chary Mendieta) This is a 62-year-old male presents today to be evaluated by emergency throat today. Patient presents for evaluation of near-syncope syncope dizziness especially with movement symptoms for a few days to weeks worse now. These are symptoms patient has had in the past especially with his blood pressure control. Patient's been taking his blood pressure home with no real improvement taking all medications as prescribed he did take an extra blood pressure medication today symptoms were the point where he was unable to come the hospital. (Max Pinto) - Related Data Home Medications Medication Instructions Recorded Confirmed Ergocalciferol (Vitamin D2) 1,250 mcg PO Q7D 12/18/21 12/18/21 [Drisdol (50,000 Iu)] Rosuvastatin Calcium 5 mg PO DAILY 12/18/21 12/18/21 lisinopriL [Zestril] 20 mg PO DAILY 12/18/21 12/18/21 Previous Rx's Medication Instructions Recorded Meclizine [Antivert] 12.5 mg PO Q6H 10 Days #30 tablet 12/21/21 Allergies Allergy/AdvReac Type Severity Reaction Status Date / Time Sulfa (Sulfonamide Allergy Rash/Hives Verified 11/15/22 22:28 Antibiotics) Review of Systems ROS Other: All systems not noted in ROS Statement are negative. <Chary Mendieta - Last Filed: 11/15/22 22:05> ROS Other: All systems not noted in ROS Statement are negative. <Max Pinto - Last Filed: 11/16/22 01:07> ROS Statement: Those systems with pertinent positive or pertinent negative responses have been documented in the HPI. Past Medical History Past Medical History: Hyperlipidemia, Hypertension, Skin Disorder Additional Past Medical History / Comment(s): Arthritis, contact dermatitis History of Any Multi-Drug Resistant Organisms: None Reported Past Surgical History: Cholecystectomy, Orthopedic Surgery Additional Past Surgical History / Comment(s): right femur sx Past Anesthesia/Blood Transfusion Reactions: No Reported Reaction Past Psychological History: No Psychological Hx Reported Smoking Status: Never smoker Past Alcohol Use History: None Reported Past Drug Use History: None Reported - Past Family History Father Family Medical History: COPD, Deep Vein Thrombosis (DVT), Myocardial Infarction ([place]) Additional Family Medical History / Comment(s): at age 77 Mother Family Medical History: Deep Vein Thrombosis (DVT), Myocardial Infarction ([place]) Additional Family Medical History / Comment(s): leaky heart valve,cabbag Sister(s) Family Medical History: Cancer Additional Family Medical History / Comment(s): bladder cancer <AnamChary - Last Filed: 11/15/22 22:05> General Exam <AnamChary - Last Filed: 11/15/22 22:05> General appearance: alert, in no apparent distress Head exam: Present: atraumatic, normocephalic, normal inspection Eye exam: Present: normal appearance, PERRL, EOMI. Absent: scleral icterus, conjunctival injection, periorbital swelling ENT exam: Present: normal exam, mucous membranes moist Neck exam: Present: normal inspection. Absent: tenderness, meningismus, lymphadenopathy Respiratory exam: Present: normal lung sounds bilaterally. Absent: respiratory distress, wheezes, rales, rhonchi, stridor Cardiovascular Exam: Present: regular rate, normal rhythm, normal heart sounds. Absent: systolic murmur, diastolic murmur, rubs, gallop, clicks GI/Abdominal exam: Present: soft, normal bowel sounds. Absent: distended, tenderness, guarding, rebound, rigid Extremities exam: Present: normal inspection, full ROM, normal capillary refill. Absent: tenderness, pedal edema, joint swelling, calf tenderness Back exam: Present: normal inspection Neurological exam: Present: alert, oriented X3, CN II-XII intact Psychiatric exam: Present: normal affect, normal mood Skin exam: Present: warm, dry, intact, normal color. Absent: rash <Max Pinto - Last Filed: 11/16/22 01:07> - General Exam Comments Initial Comments: Visual Physical Exam Vital signs reviewed General: Well-appearing, nontoxic, no acute distress. Head: Normocephalic, atraumatic Eyes: PERRLA, EOMI ENT: Airway patent Chest: Nonlabored breathing Skin: No visual rash, normal skin tone Neuro: Alert and oriented 3 Musculoskeletal: No gross abnormalities (Chary Mendieta) Course <Max Pinto - Last Filed: 11/16/22 01:07> Vital Signs 11/15/22 11/16/22 22:26 00:05 Temperature 98.1 F 98.2 F Pulse Rate 89 85 Respiratory 18 18 Rate Blood Pressure 144/82 160/100 O2 Sat by Pulse 97 97 Oximetry - Reevaluation(s) Reevaluation #1: 11/16/22 00:21 Medical record is reviewed (Max Pinto) Reevaluation #2: 11/16/22 00:21 Patient has no recurrent syncopal events here in the ER but when he does stand up he feels that dizziness and lightheadedness (Max Pinto) Reevaluation #3: 11/16/22 00:21 Patient informed results and questions are answered (Max Pinto) Reevaluation #4: 11/16/22 00:22 Was pt. sent in by a medical professional or institution? @ -no Did you speak to anyone other than the patient for history? @ -no Did you review nursing and triage notes? @ -agree Were old charts reviewed? @ -no Differential Diagnosis? @ -near syncope EKG interpreted by me (3pts min.)? @ -yes X-rays interpreted by me (1pt min.)? @ -no CT interpreted by me (1pt min.)? @ -no U/S interpreted by me (1pt. min.)? @ -no What testing was considered but not performed? (CT, X-rays, U/S, labs)? Why? @ -no What meds were considered but not given? Why? @ -no Did you discuss the management of the patient with other professionals? @ -no Did you reconcile home meds? @ -no Was smoking cessation discussed for >3mins.? @ -no Was critical care preformed (if so, how long)? @ -no Were there social determinants of health that impacted care today? How? (Homelessness, low income, unemployed, alcoholism, drug addiction, transportation, low edu. Level, literacy, decrease access to med. care, usp, rehab)? @ -no Was there de-escalation of care discussed even if they declined? (Discuss DNR or withdrawal of care, Hospice)? @ -nono What co-morbidities impacted this encounter? (DM, HTN, Smoking, COPD, CAD, Cancer, CVA, Hep., AIDS, mental health diagnosis, sleep apnea, morbid obesity)? @ -HTN Was patient admitted / discharged? @ -dc Undiagnosed new problem with uncertain prognosis? @ -no Drug Therapy requiring intensive monitoring for toxicity (Heparin, Nitro, Insulin, Cardizem)? @ -no Were any procedures done? @ -no Diagnosis/symptom? @ -no Acute, or Chronic, or Acute on Chronic? @ -no Uncomplicated (without systemic symptoms) or Complicated (systemic symptoms)? @ -no Side effects of treatment? @ -no Exacerbation, Progression, or Severe Exacerbation] @ -no Poses a threat to life or bodily function? @ -no (Max Pinto) EKG Findings - EKG Comments: EKG Findings:: EKG is sinus 81 TN 163 QRS 1:30 QTC 418 <Max Pinto - Last Filed: 11/16/22 01:07> Medical Decision Making - Lab Data Result diagrams: 11/15/22 22:50 11/15/22 22:50 - Radiology Data Radiology results: report reviewed (CT brain CT had neck negative for acute disease), image reviewed <Max Pinto - Last Filed: 11/16/22 01:07> - Medical Decision Making 59 female to the emergency department for evaluation of near syncope history of similar event Profoundly worse. Labile blood pressures at home. No chest pain occasional some chest pain when he stands up and feels easily pass out every time he stands up. He got up with family regarding cannot stand up without ligamentous something felt very dizzy lightheaded weak (Max Pinto) - Lab Data Lab Results 11/15/22 11/15/22 11/15/22 Range/Units 22:50 22:50 22:50 WBC 10.4 (3.8-10.6) k/uL RBC 5.47 (4.30-5.90) m/uL Hgb 14.2 (13.0-17.5) gm/dL Hct 44.1 (39.0-53.0) % MCV 80.5 (80.0-100.0) fL MCH 26.0 (25.0-35.0) pg MCHC 32.3 (31.0-37.0) g/dL RDW 15.1 (11.5-15.5) % Plt Count 261 (150-450) k/uL MPV 8.5 Neutrophils % 69 % Lymphocytes % 18 % Monocytes % 7 % Eosinophils % 4 % Basophils % 0 % Neutrophils # 7.2 (1.3-7.7) k/uL Lymphocytes # 1.9 (1.0-4.8) k/uL Monocytes # 0.7 (0-1.0) k/uL Eosinophils # 0.4 (0-0.7) k/uL Basophils # 0.0 (0-0.2) k/uL PT 10.6 (9.0-12.0) sec INR 1.0 (<1.2) APTT 22.7 (22.0-30.0) sec D-Dimer (<0.60) mg/L FEU Sodium 139 (137-145) mmol/L Potassium 4.1 (3.5-5.1) mmol/L Chloride 106 (98-107) mmol/L Carbon Dioxide 26 (22-30) mmol/L Anion Gap 7 mmol/L BUN 14 (9-20) mg/dL Creatinine 0.89 (0.66-1.25) mg/dL Est GFR (CKD-EPI)AfAm >90 (>60 ml/min/1.73 sqM) Est GFR (CKD-EPI)NonAf >90 (>60 ml/min/1.73 sqM) Glucose 95 (74-99) mg/dL Calcium 9.3 (8.4-10.2) mg/dL Total Bilirubin 0.8 (0.2-1.3) mg/dL AST 23 (17-59) U/L ALT 24 (4-49) U/L Alkaline Phosphatase 66 (38-126) U/L Troponin I (0.000-0.034) ng/mL Total Protein 7.5 (6.3-8.2) g/dL Albumin 4.4 (3.5-5.0) g/dL 11/15/22 11/15/22 Range/Units 22:50 22:50 WBC (3.8-10.6) k/uL RBC (4.30-5.90) m/uL Hgb (13.0-17.5) gm/dL Hct (39.0-53.0) % MCV (80.0-100.0) fL MCH (25.0-35.0) pg MCHC (31.0-37.0) g/dL RDW (11.5-15.5) % Plt Count (150-450) k/uL MPV Neutrophils % % Lymphocytes % % Monocytes % % Eosinophils % % Basophils % % Neutrophils # (1.3-7.7) k/uL Lymphocytes # (1.0-4.8) k/uL Monocytes # (0-1.0) k/uL Eosinophils # (0-0.7) k/uL Basophils # (0-0.2) k/uL PT (9.0-12.0) sec INR (<1.2) APTT (22.0-30.0) sec D-Dimer 0.26 (<0.60) mg/L FEU Sodium (137-145) mmol/L Potassium (3.5-5.1) mmol/L Chloride (98-107) mmol/L Carbon Dioxide (22-30) mmol/L Anion Gap mmol/L BUN (9-20) mg/dL Creatinine (0.66-1.25) mg/dL Est GFR (CKD-EPI)AfAm (>60 ml/min/1.73 sqM) Est GFR (CKD-EPI)NonAf (>60 ml/min/1.73 sqM) Glucose (74-99) mg/dL Calcium (8.4-10.2) mg/dL Total Bilirubin (0.2-1.3) mg/dL AST (17-59) U/L ALT (4-49) U/L Alkaline Phosphatase (38-126) U/L Troponin I <0.012 (0.000-0.034) ng/mL Total Protein (6.3-8.2) g/dL Albumin (3.5-5.0) g/dL Disposition <Chary Mendieta - Last Filed: 11/15/22 22:05> Is patient prescribed a controlled substance at d/c from ED?: No <Max Pinto - Last Filed: 11/16/22 01:07> Clinical Impression: Dehydration, Dizziness, Ataxia, Near syncope Disposition: ADMITTED IP TO THIS HOSP Condition: Undetermined Referrals: Lelia Jesus MD [Primary Care Provider] - 1-2 days
[2022-11-15 23:15] LABS: Basophils % (A) 0 %; Eosinophils # (A) 0.4 k/uL (0-0.7); Eosinophils % (A) 4 %; HCT 44.1 % (39.0-53.0); HGB 14.2 gm/dL (13.0-17.5); Lymphocytes # (A) 1.9 k/uL (1.0-4.8); Lymphocytes % (A) 18 %; MCHC 32.3 g/dL (31.0-37.0); MCV 80.5 fL (80.0-100.0); Mean Platelet Volume 8.5; Monocytes # (A) 0.7 k/uL (0-1.0); Monocytes % (A) 7 %; Neutrophils # (A) 7.2 k/uL (1.3-7.7); Neutrophils % (A) 69 %; Platelet Count 261 k/uL (150-450); RBC 5.47 m/uL (4.30-5.90); RDW 15.1 % (11.5-15.5); WBC 10.4 k/uL (3.8-10.6)
[2022-11-15 23:25] LABS: Partial Thromboplastin Time 22.7 sec (22.0-30.0); Prothrombin Time 10.6 sec (9.0-12.0)
[2022-11-15 23:26] LABS: ALT 24 U/L (4-49); AST 23 U/L (17-59); African American GFR (CKD) >90 (>60 ml/min/1.73 sqM); Albumin 4.4 g/dL (3.5-5.0); Alkaline Phosphatase 66 U/L (38-126); Anion Gap 7 mmol/L; Blood Urea Nitrogen 14 mg/dL (9-20); Calcium 9.3 mg/dL (8.4-10.2); Carbon Dioxide 26 mmol/L (22-30); Chloride 106 mmol/L (98-107); Glucose 95 mg/dL (74-99); Non-African American GFR(CKD) >90 (>60 ml/min/1.73 sqM); Potassium 4.1 mmol/L (3.5-5.1); Sodium 139 mmol/L (137-145); Total Bilirubin 0.8 mg/dL (0.2-1.3); Total Protein 7.5 g/dL (6.3-8.2)
[2022-11-15] MEDS ORDERED: SODIUM CHLORIDE 0.9% 1,000 ML IV STA (23:44)
--- NOTE | 2022-11-16 00:01 | XR ---
EXAMINATION TYPE: XR chest 2V DATE OF EXAM: 11/15/2022 COMPARISON: 12/18/2021 HISTORY: Shortness of breath TECHNIQUE: Frontal and lateral views of the chest are obtained. FINDINGS: Scattered senescent parenchymal changes noted. Hyperinflation compatible with COPD. No evidence for infiltrate. No evidence for atelectasis. Heart size is stable. Mediastinal structures are stable and grossly unremarkable. No evidence for hilar prominence. Degenerative changes dorsal spine. IMPRESSION: 1. No evidence for acute pulmonary disease.
[2022-11-16] MEDS ORDERED: NALOXONE 0.4 MG/ML 1 ML VIAL IV PRN (01:05)
[2022-11-16] MEDS: SODIUM CHLORIDE 0.9% 1,000 ML IV SCH ×4 (01:15→16:37)
--- NOTE | 2022-11-16 01:22 | CT ---
EXAM: CT Angiography Head With Intravenous Contrast CLINICAL HISTORY: ITS.REASON CT Reason: dizziness TECHNIQUE: Axial computed tomographic angiography images of the head with intravenous contrast. CTDI is 12.7 mGy and DLP is 568 mGy-cm. This CT exam was performed using one or more of the following dose reduction techniques: automated exposure control, adjustment of the mA and/or kV according to patient size, and/or use of iterative reconstruction technique. MIP reconstructed images were created and reviewed. COMPARISON: No relevant prior studies available. FINDINGS: Right internal carotid artery: No acute findings. Intracranial segment is patent with no significant stenosis. No aneurysm. Right anterior cerebral artery: Unremarkable. No occlusion or significant stenosis. No aneurysm. Right middle cerebral artery: Unremarkable. No occlusion or significant stenosis. No aneurysm. Right posterior cerebral artery: Unremarkable. No occlusion or significant stenosis. No aneurysm. Right vertebral artery: Unremarkable as visualized. Left internal carotid artery: No acute findings. Intracranial segment is patent with no significant stenosis. No aneurysm. Left anterior cerebral artery: Unremarkable. No occlusion or significant stenosis. No aneurysm. Left middle cerebral artery: Unremarkable. No occlusion or significant stenosis. No aneurysm. Left posterior cerebral artery: Unremarkable. No occlusion or significant stenosis. No aneurysm. Left vertebral artery: Unremarkable as visualized. Basilar artery: Unremarkable. No occlusion or significant stenosis. No aneurysm. IMPRESSION: Normal head CTA. EXAM: CT Angiography Neck With Intravenous Contrast CLINICAL HISTORY: ITS.REASON CT Reason: dizziness TECHNIQUE: Routine carotid CT angiography protocol was performed with intravenous contrast. NASCET criteria using the distal ICAs for comparison were used for evaluation of stenoses. CTDI is 12.7 mGy and DLP is 568 mGy-cm. This CT exam was performed using one or more of the following dose reduction techniques: automated exposure control, adjustment of the mA and/or kV according to patient size, and/or use of iterative reconstruction technique. MIP reconstructed images were created and reviewed. COMPARISON: None. FINDINGS: VASCULATURE: Right common carotid artery: Unremarkable. No occlusion or significant stenosis. No dissection. Right internal carotid artery: Unremarkable. Extracranial segment is patent with no occlusion or significant stenosis. No dissection. Right external carotid artery: Unremarkable. No occlusion. Right vertebral artery: Unremarkable. No occlusion or significant stenosis. No dissection. Left common carotid artery: Unremarkable. No occlusion or significant stenosis. No dissection. Left internal carotid artery: Unremarkable. Extracranial segment is patent with no occlusion or significant stenosis. No dissection. Left external carotid artery: Unremarkable. No occlusion. Left vertebral artery: Unremarkable. No occlusion or significant stenosis. No dissection. NECK: Bones/joints: Unremarkable. Soft tissues: Unremarkable. Lung apices: Clear. CAROTID STENOSIS REFERENCE USING NASCET CRITERIA: % ICA stenosis = (1 - narrowest ICA diameter/diameter of distal cervical ICA) x 100. Mild - <50% stenosis. Moderate - 50-69% stenosis. Severe - 70-94% stenosis. Near occlusion - 95-99% stenosis. Occluded - 100% stenosis. IMPRESSION: Negative CTA neck.
--- NOTE | 2022-11-16 01:25 | CT ---
EXAM: CT Head Without Intravenous Contrast CLINICAL HISTORY: ITS.REASON CT Reason: near syncope TECHNIQUE: Axial computed tomography images of the head/brain without intravenous contrast. CTDI is 48.8 mGy and DLP is 1161 mGy-cm. This CT exam was performed using one or more of the following dose reduction techniques: automated exposure control, adjustment of the mA and/or kV according to patient size, and/or use of iterative reconstruction technique. COMPARISON: No relevant prior studies available. FINDINGS: Brain: Unremarkable. No hemorrhage. No significant white matter disease. No edema. Ventricles: Unremarkable. No ventriculomegaly. Bones/joints: Unremarkable. No acute fracture. Soft tissues: Unremarkable. Sinuses: Left maxillary sinus inflammatory polyps. No acute sinusitis. Mastoid air cells: Unremarkable as visualized. No mastoid effusion. IMPRESSION: Head CT negative for acute intracranial abnormality.
[2022-11-16] MEDS ORDERED: amLODIPine 2.5 MG TAB PO SCH (09:00)
[2022-11-16] MEDS ORDERED: amLODIPine 5 MG TAB PO SCH (09:00)
[2022-11-16] MEDS: ATORVASTATIN 10 MG TAB PO SCH (09:04)
[2022-11-16] MEDS: amLODIPine 2.5 MG TAB PO SCH ×2 (09:04→21:23)
[2022-11-16] MEDS: lisinopriL 20 MG TAB PO SCH ×2 (09:04→21:23)
--- NOTE | 2022-11-16 09:35 | P.CRDCN ---
History of Present Illness Consult date: 11/16/22 History of present illness: HISTORY OF PRESENT ILLNESS: This is a 62-year-old male with a past medical history significant for dizziness, hypertension, hyperlipidemia, palpitations, and lightheadedness. Patient follows in the office with Dr. Marcano. We have been asked to see the patient in consultation for near syncope. Patient examined at the bedside. Patient has been having issues with dizziness for several months. The patient states he feels fine when he is sitting down but as soon as he gets up and starts to walk he feels like he is going to faint. He states yesterday he took his blood pressure at home and the systolic was noted to be in the 130s which the patient thought was high so he took an extra blood pressure medication. He states shortly afterwards he started to feel better but then started to feel worse again and rechecked his blood pressure was in the 160s. At that time he called EMS. The patient denies any chest pain or pressure. He denied any shortness of breath. Patient states he had a 1 week event monitor which did not show any abnormalities. Orthostatic blood pressures this morning are negative. * EKG reveals sinus mechanism with no signs of acute ischemia * Chest xray negative for ischemia * Brain CT: Negative for acute process * CT angio: No carotid stenosis noted * Laboratory data: WBC 10.4. Hemoglobin 14.2. Platelet count 261. D-dimer 0.26. Sodium 139. Potassium 4.1. BUN 14. Creatinine 0.89. Troponin negative 3 * Current home cardiac medications include lisinopril 20 mg twice a day, am lodipine 2.5 mg daily, and Crestor 5 mg daily * Most recent echocardiogram obtained in December 2021 revealed ejection fraction 50- 55%, mild MR, mild TR REVIEW OF SYSTEMS: At the time of my exam: CONSTITUTIONAL: Denies fever or chills. HEENT: Denies blurred vision, vision changes, or eye pain. Denies hemoptysis CARDIOVASCULAR: Denies chest pain. Denies orthopnea. Denies PND. Denies palpitations RESPIRATORY: Denies shortness of breath. GASTROINTESTINAL: Denies abdominal pain. Denies nausea or vomiting. HEMATOLOGIC: Denies bleeding disorders. GENITOURINARY: Denies any blood in urine. SKIN: Denies pruitis. Denies rash. PHYSICAL EXAM: VITAL SIGNS: Reviewed. GENERAL: Well-developed in no acute distress. HEENT: Head is normocephalic. Pupils are equal, round. Sclerae anicteric. Mucous membranes of the mouth are moist. Neck supple. No JVD or thyromegaly LUNGS: Respirations even and unlabored. Lungs essentially clear to auscultation bilaterally. HEART: Regular rate and rhythm. S1 and S2 heard. ABDOMEN: Soft. Nondistended. Nontender. EXTREMITIES: Normal range of motion. No clubbing or cyanosis. Peripheral pulses intact. No lower extremity edema NEUROLOGIC: Awake and alert. Oriented x 3. ASSESSMENT: Dizziness Palpitations Hypertension Hyperlipidemia PLAN: Increase amlodipine to 2.5 mg twice a day Continue additional cardiac medications Patient to undergo tilt table testing today Recommend 30 day event monitor which may be obtained at his follow-up appointment with Dr. Marcano Further recommendations pending patient's course Nurse practitioner note has been reviewed by physician. Signing provider agrees with the documented findings, assessment, and plan of care. Past Medical History Past Medical History: Hyperlipidemia, Hypertension, Skin Disorder Additional Past Medical History / Comment(s): Arthritis, contact dermatitis, irregular heartbeat that resolved with decrease in caffeine intake History of Any Multi-Drug Resistant Organisms: None Reported Past Surgical History: Cholecystectomy, Orthopedic Surgery Additional Past Surgical History / Comment(s): right femur sx Past Anesthesia/Blood Transfusion Reactions: No Reported Reaction Past Psychological History: No Psychological Hx Reported Smoking Status: Never smoker Past Alcohol Use History: None Reported Past Drug Use History: None Reported - Past Family History Father Family Medical History: COPD, Deep Vein Thrombosis (DVT), Myocardial Infarction ([place]) Additional Family Medical History / Comment(s): at age 77 Mother Family Medical History: Deep Vein Thrombosis (DVT), Myocardial Infarction ([place]) Additional Family Medical History / Comment(s): leaky heart valve,cabbag Sister(s) Family Medical History: Cancer Additional Family Medical History / Comment(s): bladder cancer Medications and Allergies Home Medications Medication Instructions Recorded Confirmed Type Ergocalciferol (Vitamin D2) 1,250 mcg PO Q7D 12/18/21 11/16/22 History [Drisdol (50,000 Iu)] Rosuvastatin Calcium 5 mg PO DAILY 12/18/21 11/16/22 History lisinopriL [Zestril] 20 mg PO BID 12/18/21 11/16/22 History Triamcinolone 0.5% Cream [Kenalog 1 applic TOPICAL BID 11/16/22 11/16/22 History 0.5% Cream] amLODIPine [Norvasc] 2.5 mg PO DAILY 11/16/22 11/16/22 History Allergies Allergy/AdvReac Type Severity Reaction Status Date / Time Sulfa (Sulfonamide Allergy Rash/Hives Verified 11/16/22 07:05 Antibiotics) Physical Exam Vitals: Vital Signs Temp Pulse Pulse Pulse Pulse Pulse Resp 11/16/22 08:11 108 H 92 89 11/16/22 07:00 97.8 F 74 15 11/16/22 02:32 16 11/16/22 02:00 97.7 F 78 17 11/16/22 01:00 88 16 11/16/22 00:05 98.2 F 85 18 11/15/22 22:26 98.1 F 89 18 BP BP BP BP BP Pulse Ox 11/16/22 08:11 151/101 146/85 151/85 11/16/22 07:00 148/81 98 11/16/22 02:32 11/16/22 02:00 142/81 96 11/16/22 01:00 149/87 96 11/16/22 00:05 160/100 97 11/15/22 22:26 144/82 97 Intake and Output 11/15/22 11/16/22 11/16/22 22:59 06:59 14:59 Output Total 450 200 Balance -450 -200 Output: Urine 450 200 Other: Voiding Method Urinal Weight 81.647 kg 81.647 kg Results 11/15/22 22:50 11/15/22 22:50 Cardiac Enzymes 11/15/22 11/15/22 11/16/22 Range/Units 22:50 22:50 04:08 AST 23 (17-59) U/L Troponin I <0.012 <0.012 (0.000-0.034) ng/mL 11/16/22 Range/Units 07:45 AST (17-59) U/L Troponin I <0.012 (0.000-0.034) ng/mL Coagulation 11/15/22 Range/Units 22:50 PT 10.6 (9.0-12.0) sec APTT 22.7 (22.0-30.0) sec CBC 11/15/22 Range/Units 22:50 WBC 10.4 (3.8-10.6) k/uL RBC 5.47 (4.30-5.90) m/uL Hgb 14.2 (13.0-17.5) gm/dL Hct 44.1 (39.0-53.0) % Plt Count 261 (150-450) k/uL Comprehensive Metabolic Panel 11/15/22 Range/Units 22:50 Sodium 139 (137-145) mmol/L Potassium 4.1 (3.5-5.1) mmol/L Chloride 106 (98-107) mmol/L Carbon Dioxide 26 (22-30) mmol/L BUN 14 (9-20) mg/dL Creatinine 0.89 (0.66-1.25) mg/dL Glucose 95 (74-99) mg/dL Calcium 9.3 (8.4-10.2) mg/dL AST 23 (17-59) U/L ALT 24 (4-49) U/L Alkaline Phosphatase 66 (38-126) U/L Total Protein 7.5 (6.3-8.2) g/dL Albumin 4.4 (3.5-5.0) g/dL Current Medications Generic Name Dose Route Start Last Admin Trade Name Freq PRN Reason Stop Dose Admin Amlodipine Besylate 2.5 mg 11/16/22 09:00 11/16/22 09:04 Amlodipine 2.5 Mg Tab PO 2.5 mg BID SANDER Administration Atorvastatin Calcium 10 mg 11/16/22 09:00 11/16/22 09:04 Atorvastatin 10 Mg Tab PO 10 mg DAILY SANDER Administration Sodium Chloride 1,000 mls @ 130 mls/hr 11/16/22 01:15 11/16/22 08:48 Saline 0.9% IV Not Given .Q7H42M SANDER Sodium Chloride 1,000 mls @ 20 mls/hr 11/16/22 08:15 11/16/22 08:48 Saline 0.9% IV Not Given .Q24H SANDER Lisinopril 20 mg 11/16/22 09:00 11/16/22 09:04 Lisinopril 20 Mg Tab PO 20 mg BID SANDER Administration Naloxone HCl 0.2 mg 11/16/22 01:05 Naloxone 0.4 Mg/Ml 1 Ml Vial IV Q2M PRN Opioid Reversal Intake and Output 11/15/22 11/16/22 11/16/22 22:59 06:59 14:59 Output Total 450 200 Balance -450 -200 Output: Urine 450 200 Other: Voiding Method Urinal Weight 81.647 kg 81.647 kg 11/15/22 22:50 11/15/22 22:50
[2022-11-16] MEDS ORDERED: IV FLUID CONTINUATION 1,000 ML IV ONE (10:10)
--- NOTE | 2022-11-16 14:41 | P.HPIM ---
History of Present Illness H&P Date: 11/16/22 Chief Complaint: Presyncope * 62 yo gentleman with past medical history significant for hypertension, hyperlipidemia, previous history of dizziness presented to the emergency d [facility] with complaints of near syncope, patient states he was sitting as soon as he tried to get the patient felt dizzy and this is going to pass out while at home patient checked her blood pressure which was normotensive. Patient stated his blood pressure waxed and waned at home and decided to call EMS. Patient denied associated chest pain. Patient had previous outpatient workup done for dizziness including an event monitor which was negative for any abnormalities. The time of admission patient had orthostatic vital signs which were negative * EKG obtained showed normal sinus rhythm, chest x-ray was negative, CT head was obtained which was negative for acute intracranial process, CT angina head and neck was negative for hemodynamically significant stenosis * Blood work obtained showed normal renal profile, serial troponins obtained which were negative white blood cell count within normal limits * Consultation obtained from cardiology and patient placed on the medical floor * Patient had similar episode in December 2021 and was seen by neurology and MRI brain was done at that time that was negative at that time it was felt the patient is alert and MRI negative patient to be treated for positional vertigo * He did complain at times when he turns his head he does feel dizzy however ursula cadena was not able to clarify whether it felt like the room spinning around like [facility] Review of Systems REVIEW OF SYSTEMS: Essentially negative except dizziness CONSTITUTIONAL: No fever, no malaise, no fatigue. HEENT: No recent visual problems or hearing problems. Denied any sore throat. CARDIOVASCULAR: No chest pain, orthopnea, PND, no palpitations, no syncope. PULMONARY: No shortness of breath, no cough, no hemoptysis. GASTROINTESTINAL: No diarrhea, no nausea, no vomiting, no abdominal pain. NEUROLOGICAL: No headaches, no weakness, no numbness. HEMATOLOGICAL: Denies any bleeding or petechiae. GENITOURINARY: Denies any burning micturition, frequency, or urgency. MUSCULOSKELETAL/RHEUMATOLOGICAL: Denies any joint pain, swelling, or any muscle pain. ENDOCRINE: Denies any polyuria or polydipsia. Past Medical History Past Medical History: Hyperlipidemia, Hypertension, Skin Disorder Additional Past Medical History / Comment(s): Arthritis, contact dermatitis, irregular heartbeat that resolved with decrease in caffeine intake History of Any Multi-Drug Resistant Organisms: None Reported Past Surgical History: Cholecystectomy, Orthopedic Surgery Additional Past Surgical History / Comment(s): right femur sx Past Anesthesia/Blood Transfusion Reactions: No Reported Reaction Past Psychological History: No Psychological Hx Reported Smoking Status: Never smoker Past Alcohol Use History: None Reported Past Drug Use History: None Reported - Past Family History Father Family Medical History: COPD, Deep Vein Thrombosis (DVT), Myocardial Infarction (AL) Additional Family Medical History / Comment(s): at age 77 Mother Family Medical History: Deep Vein Thrombosis (DVT), Myocardial Infarction (AL) Additional Family Medical History / Comment(s): leaky heart valve,cabbag Sister(s) Family Medical History: Cancer Additional Family Medical History / Comment(s): bladder cancer Medications and Allergies Home Medications Medication Instructions Recorded Confirmed Type Ergocalciferol (Vitamin D2) 1,250 mcg PO Q7D 12/18/21 11/16/22 History [Drisdol (50,000 Iu)] Rosuvastatin Calcium 5 mg PO DAILY 12/18/21 11/16/22 History lisinopriL [Zestril] 20 mg PO BID 12/18/21 11/16/22 History Triamcinolone 0.5% Cream [Kenalog 1 applic TOPICAL BID 11/16/22 11/16/22 History 0.5% Cream] amLODIPine [Norvasc] 2.5 mg PO DAILY 11/16/22 11/16/22 History Allergies Allergy/AdvReac Type Severity Reaction Status Date / Time Sulfa (Sulfonamide Allergy Rash/Hives Verified 11/16/22 07:05 Antibiotics) Physical Exam Vitals: Vital Signs Temp Pulse Pulse Pulse Pulse Pulse Resp 11/16/22 13:42 98.2 F 82 18 11/16/22 08:11 108 H 92 89 11/16/22 07:00 97.8 F 74 15 11/16/22 02:32 16 11/16/22 02:00 97.7 F 78 17 11/16/22 01:00 88 16 11/16/22 00:05 98.2 F 85 18 11/15/22 22:26 98.1 F 89 18 BP BP BP BP BP Pulse Ox 11/16/22 13:42 133/75 94 L 11/16/22 08:11 151/101 146/85 151/85 11/16/22 07:00 148/81 98 11/16/22 02:32 11/16/22 02:00 142/81 96 11/16/22 01:00 149/87 96 11/16/22 00:05 160/100 97 11/15/22 22:26 144/82 97 Intake and Output 11/15/22 11/16/22 11/16/22 22:59 06:59 14:59 Output Total 450 200 Balance -450 -200 Output: Urine 450 200 Other: Voiding Method Urinal Weight 81.647 kg 81.647 kg PHYSICAL EXAMINATION: Vital reviewed GENERAL: The patient is alert and oriented x3, not in any acute distress. Well developed HEENT: Pupils are round and equally reacting to light. EOMI. No scleral icterus. No conjunctival pallor. Normocephalic, atraumatic. No pharyngeal erythema. CARDIOVASCULAR: S1 and S2 present. No murmurs, Edema not present PULMONARY: Chest is clear to auscultation, no wheezing or Ronchi ABDOMEN: Soft, nontender, nondistended, normoactive bowel sounds. No palpable organomegaly. MUSCULOSKELETAL: No joint swelling or deformity. EXTREMITIES: No cyanosis, clubbing, or pedal edema. NEUROLOGICAL: Gross neurological examination did not reveal any focal deficits. SKIN: No rashes. Results CBC & Chem 7: 11/15/22 22:50 11/15/22 22:50 Thrombosis Risk Factor Assmnt - Choose All That Apply Each Factor Represents 1 point: Obesity (BMI >25) Each Risk Factor Represents 2 Points: Age 61-74 years Thrombosis Risk Factor Assessment Total Risk Factor Score: 3 Thrombosis Risk Factor Assessment Level: Moderate Risk Assessment and Plan Assessment: Assessment and plan * Recurrent episode of dizziness and palpitations with presyncope rule out cardiac etiology * Rule out positional vertigo started empirically on meclizine * History of hypertension * Hyperlipidemia * Consult obtained from cardiology, tilt table tests ordered * Does of amlodipine changed continue current regimen 2.5 mg * Patient will need 30 day event monitor and outpatient follow-up with cardiology * Started on meclizine while inpatient * Will need physical therapy evaluation * CODE STATUS is full code * Subcu heparin for DVT prophylax
[2022-11-16] MEDS: MECLIZINE 25 MG TAB PO SCH ×2 (16:36→21:23)
--- NOTE | 2022-11-16 19:00 | P.EPPROC ---
- EP Procedure Note Electrophysiology Procedure Note: Diagnosis Recurrent dizzy spells especially upon standing Twelve-lead EKG shows sinus mechanism normal CO narrow QRS normal ST segments Tilt table test per protocol Baseline blood pressure 151/79 mmHg, baseline 196 beats a minute Patient was tilted upright at an angle of 70 per protocol There was a gradual decline in his blood pressure and towards the end of the tilt table test, his blood pressure dropped to 67/42 mmHg There is a mild increase in heart rate to 110 beats a minute from baseline When he was laid supine his blood pressure normalized and his heart rate came back to the 90s. Impression Orthostatic hypotension syndrome with a gradual decline in blood pressure upon prolonged standing, symptomatic However the patient states that while he felt nauseous had cold sweats and dizzy, this dizziness was different than what he has been experiencing clinically
[2022-11-16] MEDS: HEPARIN SODIUM,PORCINE/PF 5,000 UNIT/0.5 ML SYRINGE SQ SCH (21:23)
[2022-11-17] MEDS: SODIUM CHLORIDE 0.9% 1,000 ML IV SCH ×4 (01:27→16:46)
[2022-11-17] MEDS: amLODIPine 2.5 MG TAB PO SCH (09:15)
[2022-11-17] MEDS: lisinopriL 20 MG TAB PO SCH (09:15)
[2022-11-17] MEDS: HEPARIN SODIUM,PORCINE/PF 5,000 UNIT/0.5 ML SYRINGE SQ SCH (09:16)
[2022-11-17] MEDS: MECLIZINE 25 MG TAB PO SCH ×2 (09:16→16:46)
[2022-11-17] MEDS: ATORVASTATIN 10 MG TAB PO SCH (09:16)
[2022-11-17 10:48] LABS: African American GFR (CKD) >90 (>60 ml/min/1.73 sqM); Anion Gap 7 mmol/L; Blood Urea Nitrogen 12 mg/dL (9-20); C Reactive Protein <0.5 mg/dL (<1.0); Carbon Dioxide 27 mmol/L (22-30); Chloride 108 mmol/L (98-107); Glucose 116 mg/dL (74-99); Non-African American GFR(CKD) 88 (>60 ml/min/1.73 sqM); Potassium 4.1 mmol/L (3.5-5.1); Sodium 142 mmol/L (137-145)
--- NOTE | 2022-11-17 11:42 | P.PN ---
Subjective Progress Note Date: 11/17/22 HISTORY OF PRESENT ILLNESS: This is a 62-year-old male with a past medical history significant for dizziness, hypertension, hyperlipidemia, palpitations, and lightheadedness. Patient follows in the office with Dr. Marcano. We have been asked to see the patient in consultation for near syncope. Patient examined at the bedside. Patient has been having issues with dizziness for several months. The patient states he feels fine when he is sitting down but as soon as he gets up and starts to walk he feels like he is going to faint. He states yesterday he took his blood pressure at home and the systolic was noted to be in the 130s which the patient thought was high so he took an extra blood pressure medication. He states shortly afterwards he started to feel better but then started to feel worse again and rechecked his blood pressure was in the 160s. At that time he called EMS. The patient denies any chest pain or pressure. He denied any shortness of breath. Patient states he had a 1 week event monitor which did not show any abnormalities. Orthostatic blood pressures this morning are negative. * EKG reveals sinus mechanism with no signs of acute ischemia * Chest xray negative for ischemia * Brain CT: Negative for acute process * CT angio: No carotid stenosis noted * Laboratory data: WBC 10.4. Hemoglobin 14.2. Platelet count 261. D-dimer 0.26. Sodium 139. Potassium 4.1. BUN 14. Creatinine 0.89. Troponin negative 3 * Current home cardiac medications include lisinopril 20 mg twice a day, amlodipine 2.5 mg daily, and Crestor 5 mg daily * Most recent echocardiogram obtained in December 2021 revealed ejection fraction 50- 55%, mild MR, mild TR 11/17/2022 Patient examined this morning at the bedside. Patient underwent tilt table testing yesterday which revealed orthostatic hypotension syndrome with a gradual decline in blood pressure upon prolonged standing for greater than 30 minutes. The patient experienced nausea and cold sweats which he states is completely different than his symptoms he has at home with his typical dizziness. PHYSICAL EXAM: VITAL SIGNS: Reviewed. GENERAL: Well-developed in no acute distress. HEENT: Head is normocephalic. Pupils are equal, round. Sclerae anicteric. Mucous membranes of the mouth are moist. Neck supple. No JVD or thyromegaly LUNGS: Respirations even and unlabored. Lungs essentially clear to auscultation bilaterally. HEART: Regular rate and rhythm. S1 and S2 heard. ABDOMEN: Soft. Nondistended. Nontender. EXTREMITIES: Normal range of motion. No clubbing or cyanosis. Peripheral pulses intact. No lower extremity edema NEUROLOGIC: Awake and alert. Oriented x 3. ASSESSMENT: Dizziness Palpitations Hypertension Hyperlipidemia Orthostatic hypotension syndrome with gradual decline in blood pressure of greater than 30 minutes PLAN: Continue current cardiac medications Patient to receive 30 day event monitor today Patient may be discharged home this afternoon from a cardiac standpoint and follow up on an outpatient basis with Dr. Marcano Nurse practitioner note has been reviewed by physician. Signing provider agrees with the documented findings, assessment, and plan of care. Objective - Vital Signs Vital signs: Vital Signs Temp 97.7 F 11/17/22 07:54 Pulse 75 11/17/22 07:54 Resp 16 11/17/22 07:54 BP 123/74 11/17/22 07:54 Pulse Ox 96 11/17/22 07:54 FiO2 21 11/16/22 09:00 Intake & Output 11/16/22 11/17/22 11/17/22 18:59 06:59 18:59 Intake Total 118 Output Total 400 350 Balance -400 -350 118 Intake: Oral 118 Output: Urine 400 350 Other: Voiding Method Urinal - Labs CBC & Chem 7: 11/15/22 22:50 11/17/22 08:58 Labs: Abnormal Lab Results - Last 24 Hours (Table) 11/17/22 Range/Units 08:58 Chloride 108 H (98-107) mmol/L Glucose 116 H (74-99) mg/dL
[2022-11-17 14:06] VITALS: BP 115/79; PULSE 90; RESP 12; TEMP 98.1
--- NOTE | 2022-11-17 15:13 | P.DS ---
Providers Date of admission: 11/16/22 01:06 Expected date of discharge: 11/17/22 Attending physician: Nabil Leslie Consults: 11/16/22 01:05 Consult Physician Routine Consulting Provider: Mukesh Galindo Consult Reason/Comments: near syncope Do you want consulting provider notified?: Yes Primary care physician: [facility] Course: * 62 yo gentleman with past medical history significant for hypertension, hyperlipidemia, previous history of dizziness presented to the emergency department with complaints of near syncope, patient states he was sitting as soon as he tried to get the patient felt dizzy and this is going to pass out while at home patient checked her blood pressure which was normotensive. Patient stated his blood pressure waxed and waned at home and decided to call EMS. Patient denied associated chest pain. Patient had previous outpatient workup done for dizziness including an event monitor which was negative for any abnormalities. The time of admission patient had orthostatic vital signs which were negative * EKG obtained showed normal sinus rhythm, chest x-ray was negative, CT head was obtained which was negative for acute intracranial process, CT angina head and neck was negative for hemodynamically significant stenosis * Blood work obtained showed normal renal profile, serial troponins obtained which were negative white blood cell count within normal limits * Consultation obtained from cardiology and patient placed on the medical floor * Patient had similar episode in December 2021 and was seen by neurology and MRI brain was done at that time that was negative at that time it was felt the patient is alert and MRI negative patient to be treated for positional vertigo * He did complain at times when he turns his head he does feel dizzy however patient was not able to clarify whether it felt like the room spinning around like [facility] * Patient was seen by cardiology and completed tilt table test which was positive. * Cardiology adjusted patient's home medications * Patient was started on meclizine as well and recommended to follow outpatient PHYSICAL EXAMINATION: Vital reviewed GENERAL: The patient is alert and oriented x3, not in any acute distress. Well developed HEENT: Pupils are round and equally reacting to light. EOMI. No scleral icterus. No conjunctival pallor. Normocephalic, atraumatic. No pharyngeal erythema. CARDIOVASCULAR: S1 and S2 present. No murmurs, Edema not present PULMONARY: Chest is clear to auscultation, no wheezing or Ronchi ABDOMEN: Soft, nontender, nondistended, normoactive bowel sounds. No palpable organomegaly. MUSCULOSKELETAL: No joint swelling or deformity. EXTREMITIES: No cyanosis, clubbing, or pedal edema. NEUROLOGICAL: Gross neurological examination did not reveal any focal deficits. SKIN: No rashes. Assessment and plan * Recurrent episode of dizziness and palpitations with presyncope rule out cardiac etiology * Rule out positional vertigo started empirically on meclizine * History of hypertension * Hyperlipidemia Consult obtained from cardiology, tilt table tests completed Does of amlodipine changed continue current regimen 2.5 mg twice a day Patient will need 30 day event monitor and outpatient follow-up with cardiology Started on meclizine while inpatient prescription provided Symptoms improved discharge home with outpatient follow-up with PCP in cardial Patient Condition at Discharge: Fair Plan - Discharge Summary New Discharge Prescriptions: New Meclizine [Antivert] 25 mg PO TID 5 Days #15 tab Continue Rosuvastatin Calcium 5 mg PO DAILY Ergocalciferol (Vitamin D2) [Drisdol (50,000 Iu)] 1,250 mcg PO Q7D Triamcinolone 0.5% Cream [Kenalog 0.5% Cream] 1 applic TOPICAL BID lisinopriL [Zestril] 20 mg PO BID Changed amLODIPine [Norvasc] 2.5 mg PO BID 30 Days #60 tab Discharge Medication List Ergocalciferol (Vitamin D2) [Drisdol (50,000 Iu)] 1,250 mcg PO Q7D 12/18/21 [History] Rosuvastatin Calcium 5 mg PO DAILY 12/18/21 [History] lisinopriL [Zestril] 20 mg PO BID 12/18/21 [History] Triamcinolone 0.5% Cream [Kenalog 0.5% Cream] 1 applic TOPICAL BID 11/16/22 [History] Meclizine [Antivert] 25 mg PO TID 5 Days #15 tab 11/17/22 [Rx] amLODIPine [Norvasc] 2.5 mg PO BID 30 Days #60 tab 11/17/22 [Rx] Follow up Appointment(s)/Referral(s): Tony Marcano DO [STAFF PHYSICIAN] - 1 Week Lelia Jesus MD [Primary Care Provider] - 1-2 days Discharge Disposition: HOME SELF-CARE
[2022-11-21 19:36] LABS: Metanephrine, Free <25 pg/mL (< OR = 57); Normetanephrine, Free <25 pg/mL (< OR = 148); Total, Free (MN + NMN) <25 pg/mL (< OR = 205)
[2022-11-22 13:37] LABS: Metanephrines 24 Hour,Urine 278 ug/day (52-341); Normetanephrine 24 Hour,Urine 344 ug/day (88-444); Total Metanephrines 24 Hour,Ur 622 ug/day (140-785); Urine Creatinine, 24 Hr 1.6 gm/24h (1.0-2.0)
== END 2022-11-17 16:53 | disposition home or self-care (01) ==
LOC: EC 22:03 → 6NMEDSUR 11-16 01:06
PROVIDERS: ADMIT Hospitalist; ATTEND Hospitalist
DX: R55 Syncope and collapse (principal); E86.0 Dehydration; I95.1 Orthostatic hypotension; I10 Essential (primary) hypertension; E78.5 Hyperlipidemia, unspecified; L25.9 Unspecified contact dermatitis, unspecified cause; R27.0 Ataxia, unspecified; R00.2 Palpitations; R53.1 Weakness; E66.9 Obesity, unspecified; Z68.28 Body mass index [BMI] 28.0-28.9, adult; Z79.899 Other long term (current) drug therapy; Z88.2 Allergy status to sulfonamides; Z90.49 Acquired absence of other specified parts of digestive tract; Z98.890 Other specified postprocedural states; Z82.5 Family history of asthma and other chronic lower respiratory diseases; Z82.49 Family history of ischemic heart disease and other diseases of the circulatory system; Z80.52 Family history of malignant neoplasm of bladder
CPT/HCPCS: 96361 ×2; 96360; 99285; 36415; 94760 ×2; 93005; 93270; 97110; 97162; 93660; 83835 ×2; 85379; 80053; 80048; 82533; 82088; 84244; 83735; 84484 ×2; 85025; 85610; 85730; 86140; 71046; 70496; 70450; 70498; G0378 ×2; Q9967; J1644

== ENCOUNTER → 2025-01-29 | Outpatient (CLI) | payer MEDICARE, OTHER ==
--- NOTE | 2025-01-29 16:19 | US ---
EXAMINATION TYPE: US kidneys/renal and bladder DATE OF EXAM: 01/29/2025 COMPARISON: 12/20/2021 CLINICAL INDICATION: Male, 64 years old with history of R10.9 UNSPECIFIED ABDOMINAL PAIN; Urinary cathy quency TECHNIQUE: Grayscale imaging of the bilateral kidneys and urinary bladder: FINDINGS: EXAM MEASUREMENTS: Right Kidney: 11.2 x 6.3 x 6.1 cm Left Kidney: 13.4 x 6.5 x 5.6 cm Right Kidney: Subcentimeter cysts noted, prominent renal pelvis Left Kidney: Subcentimeter cysts noted, prominent renal pelvis No hydronephrosis on either side. Bladder: Small fundal diverticulum measuring 1.6 cm. Bilateral Jets seen: Yes Post void Residual: 315 mL IMPRESSION: 1. No hydronephrosis. 2. A few scattered subcentimeter cortical cysts in both kidneys. 3. Urinary retention with postvoid bladder volume of 315 mL. Clinically correlate. [facility], , 01/29/2025 4:17 PM
== END | disposition home or self-care (01) ==
LOC: RADUSWWP 15:32
PROVIDERS: ATTEND Internal Medicine
DX: N28.1 Cyst of kidney, acquired (principal); R33.9 Retention of urine, unspecified
CPT/HCPCS: 76770